=== PATIENT | female | born 1960 | race Caucasian/White ===

== ENCOUNTER 2017-02-24 15:42 | Inpatient (IN) ==
[2017-02-24] MEDS ORDERED: GLUCAGON 1 MG VIAL IM PRN (16:43)
[2017-02-24] MEDS ORDERED: ALBUTEROL/IPRATROPIUM 3 ML NEB RESP TX PRN (16:43)
[2017-02-24] MEDS ORDERED: DEXTROSE 50% 25 GM/50 ML VIAL IV PRN (16:43)
[2017-02-24] MEDS ORDERED: DOCUSATE SODIUM 100 MG CAPSULE PO PRN (16:43)
--- NOTE | 2017-02-24 16:43 | Pulmonology History & Physical ---
History of Present Illness Chief complaint: cough SOB outpttxfailure possible LLL pneumonia bronchiectasis IPF History of present illness: RAYMOND De La Cruz acting as scribe for Dr. Lazarus Torres. Ms. Oliver is a 56 year old /White female who was admitted today 02/24 from the clinic for increased cough, shortness of breath, fever, chills, fatigue, possible LLL pneumonia, history of bronchiectasis and IPF, that has been refractory to outpatient treatment. Before she presented to the clinic yesterday she was previously being treated with Levaquin and PenVK for 3 weeks for chronic bronchiectasis with recurrent infections, and she called 2-3 days before visit c/o increased symptoms. She had completed Levaquin and PenVK at that time so per Dr. Torres she was to start Cleocin and Keflex for 14 days. She reported no improvement in symptoms upon exam in the clinic, symptoms worse x 1 week with continued cough chest congestion minimal sputum production difficulty producing sputum with cough despite being on SSKI and Mucinex as directed. She was also experiencing nausea, abdominal pain, and fatigue which resulted in decreased appetite. Upon review of her CXR noted possible early left lower lobe infiltrate. Due to severity of her symptoms refractory to outpatient treatment, past medical history, and possible infiltrate on CXR decision was made to admit to inpatient for further evaluation and treatment. ALLERGIES: BACTRIM DS (NAUSEA/UPSET STOMACH). Home Medicines: See List. Past Medical History: Biopsy proven idiopathic pulmonary fibrosis, non-insulin dependent diabetes mellitus, degenerative joint disease, history of bronchospasm , three pulmonary nodules found in 2006 and [address] Huston who watched them for a while per CT scans of the chest, asthma, underlying bronchiectasis at the bases of the lungs, hyperlipidemia, gastroesophageal reflux disease. Past Surgical History: Open lung biopsy done in November [address] Callum Muñoz showed advanced interstitial lung disease with honeycomb lung pattern , tonsils/adenoids removed as a child, section. Social History: PCP Dr. Pratibha Connell. 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 CXR done 02/24/17 showed multiple chronic changes with a possible early left lower lobe infiltrate noted. [place]24/17 [place] [facility] [place] [place] been [place] WBC 10,300 with 70.4% segs H&H 13.2/ 41.4 with normal indices and increased RDW at 15.7% platelets 264,000. Home Medications Medication Instructions Recorded Confirmed Type Albuterol Sulfate [Albuterol Neb] 2.5 mg RESP TX Q3H PRN 03/25/16 02/24/17 History Ascorbic Acid [Vitamin C] 1,000 mg PO DAILY 03/25/16 02/24/17 History Cyanocobalamin (Vitamin B-12) 1,000 mcg SL DAILY 03/25/16 02/24/17 History [Vitamin B-12] Fluticasone/Vilanterol [Breo 1 puff INH DAILY 03/25/16 02/24/17 History Ellipta 100-25 Mcg INH] Furosemide Tab [Lasix Tab] 20 mg PO DAILY 03/25/16 02/24/17 History Gabapentin 300 mg PO BEDTIME 03/25/16 02/24/17 History Glimepiride [Amaryl] 4 mg PO BID 03/25/16 02/24/17 History Montelukast Tab [Singulair Tab] 10 mg PO DAILY 03/25/16 02/24/17 History Multivitamin [One Daily] 1 each PO DAILY 03/25/16 02/24/17 History Omeprazole [Prilosec] 20 mg PO BID 03/25/16 02/24/17 History PARoxetine [Paxil] 30 mg PO DAILY 03/25/16 02/24/17 History Pirfenidone [Esbriet] 801 mg PO TID 03/25/16 02/24/17 History metFORMIN [Glucophage] 850 mg PO TID 03/25/16 02/24/17 History Atorvastatin [Lipitor] 10 mg PO BEDTIME 02/24/17 02/24/17 History Benzonatate 200 mg PO TID PRN 02/24/17 02/24/17 History Biotin 10,000 mcg PO DAILY 02/24/17 02/24/17 History Levalbuterol HCl [Xopenex] 1.25 mg INH BID 02/24/17 02/24/17 History Levocetirizine Dihydrochloride 5 mg PO DAILY 02/24/17 02/24/17 History [Xyzal] Lysine HCl [l-Lysine] 500 mg PO DAILY 02/24/17 02/24/17 History Potassium Iodide Oral Soln [Sski] 1,000 mg PO BID 02/24/17 02/24/17 History predniSONE TAB [PredniSONE] 10 mg PO QOTHER DAY 02/24/17 02/24/17 History Allergies Allergy/AdvReac Type Severity Reaction Status Date / Time No Known Allergies Allergy Unverified 03/25/16 14:40 Medical,Surgical,& Family Hx - Medical History Endocrine: History of: Diabetes Mellitus (NIDDM) Respiratory: History of: Respiratory Problems (PULMONARY FIBROSIS) - Social History Smoking Status: Unknown if ever smoked Results - Labs CBC & BMP: 02/25/17 03:53 02/25/17 03:53 Exam (Pulmonay) H&P - Constitutional Vitals: Ht 64in Wt 209lbs BP 125/87 HR119 Temp 99.5 oral RR18 O2 sat 96% on 2L o2/NC Exam: GENERAL: Awake alert oriented. Acute and chronically ill appearing. Anxious NEURO: Cranial nerves are intact long tract motor function is intact. Sensory exam and gait not tested. HEENT: Pupils, irises, sclera, conjunctiva, and eyelids normal. Face is symmetrical with no rashes or masses. Nares are normal, nasal turbinates are slightly pale and swollen, lips tongue buccal mucosa ears and TMs normal. NECK: Symmetrical no masses or meningismus thyroid not palpated. Lymphatic: No submandibular cervical supraclavicular adenopathy Chest: Chest is symmetrical and nontender to palpation. There is a mild large airway wheeze on forced expiration. No high pitched expiratory peripheral wheezes noted. Mildly prolonged expiration. Inspiratory rales and squeaks noted in both bases consistent with bronchiectasis. Cardiovascular: Regular rate and rhythm, no murmurs or gallop. Abdomen: Nontender, no organomegaly, bowel sounds are present. Extremities: No clubbing, no edema, no evidence of deep venous thrombophlebitis Arterial: Arterial exam of the neck upper and lower extremities normal. Venous: Venous exam of the neck upper and lower extremities normal. Skin: No cancerous or infectious lesions noted on the exposed examined skin,, no other areas of skin were examined. Skin is cool and diaphoretic. The remainder of the physical exam is noncontributory. Impression: #1 Acute exacerbation of asthma, likely bacterial component due to increased WBC count with left shift refractory to outpatient treatment. #2 Possible acute left lower lobe infiltrate, sputums and blood cultures pending at this time. #3 Idiopathic pulmonary fibrosis #4 Non-insulin dependent diabetes mellitus #5 Bronchiectasis #6 See past history Plan #1 Admit to inpatient for further evaluation and treatment #2 Blood cultures x 3, sputum culture for gram stain C&S #3 IV antibiotics as ordered #4 Inhalation therapy with Duonebs and Acapella as ordered #5 Continue home medicines #6 See orders.
[2017-02-24] MEDS ORDERED: ACETAMINOPHEN 325 MG TABLET PO PRN (16:48)
[2017-02-24] MEDS ORDERED: BENZONATATE 100 MG CAPSULE PO PRN (16:53)
[2017-02-24] MEDS ORDERED: traMADol 50 MG TABLET PO PRN (16:56)
[2017-02-24 18:51] LABS: Alanine Aminotransferase 44 U/L (13-56); Albumin 3.9 G/DL (3.4-5.0); Alkaline Phosphatase 112 U/L (45-117); Aspartate Amino Transferase 21 U/L (0-37); Bilirubin,Total < 0.39 MG/DL (0.2-1.0); Blood Urea Nitrogen 9 MG/DL (7-18); Calcium 9.7 MG/DL (8.5-10.1); Glucose 173 MG/DL (74-106); Magnesium 2.1 MG/DL (1.8-2.4); Osmolality,Calculated 277.7 MOS/KG (273-304); Potassium 4.6 MMOL/L (3.5-5.1); Sodium 138 MMOL/L (136-145); Total Protein 8.6 G/DL (6.4-8.3)
[2017-02-24] MEDS: CLINDAMYCIN INJ 300 MG in PREMIX 1 EACH IV SCH ×2 (19:07→22:53)
[2017-02-24] MEDS: methylPREDNISolone SOD SUC 40 MG/1 ML VIAL IV SCH (19:07)
[2017-02-24] MEDS: ALBUTEROL/IPRATROPIUM 3 ML NEB RESP TX SCH (20:52)
[2017-02-24] MEDS: MONTELUKAST 10 MG TABLET PO SCH (20:54)
[2017-02-24] MEDS: POTASSIUM IODIDE ORAL SOLN 1,000 MG/ML BOTTLE PO SCH (20:54)
[2017-02-24] MEDS: MEROPENEM 1,000 MG in SODIUM CHLORIDE 0.9% 100 ML IV SCH (20:54)
[2017-02-24] MEDS ORDERED: ZALEPLON 5 MG CAPSULE PO PRN (21:00)
[2017-02-25] MEDS: MEROPENEM 1,000 MG in SODIUM CHLORIDE 0.9% 100 ML IV SCH ×3 (02:06→18:13)
[2017-02-25 04:43] LABS: Basophils % 0.3 % (0.0-0.8); Eosinophils % 0.4 % (0.00-10.9); Hematocrit 37.7 VOL% (35.7-47.0); Hemoglobin 12.2 GM/DL (12.0-16.0); Immature Granulocytes % 0.7 %; Immature Granulocytes Absolute 0.08 #; Lymphocytes # 1.8 10*3/uL (1.4-4.0); Mean Corpuscular HGB Conc 32.4 GM/DL (32-36); Mean Corpuscular Hemoglobin 28 PG (27-34); Mean Corpuscular Volume 86.3 FL (87-102); Mean Platelet Volume 10.7 FL (9.6-12.0); Monocytes # 0.9 10*3/uL (0.11-0.8); Monocytes % 7.9 % (1.7-12.7); Neutrophils # 7.9 10*3/uL (1.4-7.4); Neutrophils % 73.7 % (38.7-73.9); Platelet Count 279 T/CUMM (130-400); Red Blood Count 4.37 MC/CUMM (3.8-5.5); Red Cell Distribution Width 15.6 % (9.3-17.3); White Blood Count 10.7 T/CUMM (4-12)
[2017-02-25 05:08] LABS: Calcium 9.8 MG/DL (8.5-10.1); Osmolality,Calculated 278.5 MOS/KG (273-304); Potassium 4.6 MMOL/L (3.5-5.1)
[2017-02-25] MEDS: CLINDAMYCIN INJ 300 MG in PREMIX 1 EACH IV SCH ×4 (05:19→23:28)
[2017-02-25] MEDS: methylPREDNISolone SOD SUC 40 MG/1 ML VIAL IV SCH ×2 (05:19→17:41)
--- NOTE | 2017-02-25 07:16 | EKG Report ---
Stationary ECG Study [facility] Test Date: 02/25/2017 6:16:53 AM Pat Name: BRITNI WILSON Department: Room: 532 Gender: F Setter Off: VU : 1960 Requested by: Sam Romano Order Number: [id number] Reading MD: JOVON IBANEZ Intervals Mckenzie Rate: 70 P: 24 NE: 104 QRS: -18 QRSD: 98 T: -2 QT: 377 QTc: 397 Interpretive Statements SINUS RHYTHM WITH SHORT NE INTERVAL MINIMAL VOLTAGE CRITERIA FOR LVH, CONSIDER NORMAL VARIANT. Early repolarization.. No acuteChanges. Electronically Signed On 02-28-17 15:01:12 CDT by JOVON IBANEZ [email or web address]
[2017-02-25] MEDS: ALBUTEROL/IPRATROPIUM 3 ML NEB RESP TX SCH ×4 (07:29→19:41)
--- NOTE | 2017-02-25 07:36 | XRay Report ---
XR chest 2V Indication: Shortness of breath. Comparison: Chest x-ray 03/25/2016 Technique: PA and lateral chest x-ray was performed. Findings: Airspace opacification in the left lung base remains present with little change suggested given the difference in inspiration. Additional airspace opacities in the right costophrenic angle may have minimally increased. Heart size is within normal limits. Bones and soft tissues are stable. Impression: 1. Overall appearance of the lung parenchyma suggests little change. There may be minimal interval increase in airspace disease within the right costophrenic angle with otherwise little change in the left lung noted. 02/25/2017 7:32 AM PROCEDURE INTERPRETED AT [facility] DEPARTMENT OF RADIOLOGY Final Report Signed by: Dr. Jose Alfredo Whitman
[2017-02-25] MEDS ORDERED: BENZONATATE 100 MG CAPSULE PO PRN (10:07)
--- NOTE | 2017-02-25 10:16 | Pulmonology Progress Note ---
Pulmonary - PN: Subj Interval history: Kash Manzano, ANP-BC, GNP-BC, acting as scribe for Dr. Lazarus Torres Mrs. Oliver is a 56-year-old white female who was admitted [facility]/24/2017 from [facility]. At admission, our impressions were: #1 Acute exacerbation of asthma, likely bacterial component due to increased WBC count with left shift refractory to outpatient treatment. #2 Possible acute left lower lobe infiltrate, sputums and blood cultures pending at this time #3 Idiopathic pulmonary fibrosis #4 Non-insulin dependent diabetes mellitus #5 Bronchiectasis #6 See past history 02/25/2017. The patient's chest x-ray is already shown improvement since admission. She had a left lower lobe infiltrate and this persists, but is improving. Sputum for Gram stain, culture and sensitivity is pending. She is presently being treated with clindamycin and meropenem. She complains this morning that her home medications have not been restarted. On review of orders , and order was submitted yesterday to ID and continue her home meds. For some reason this was not done. Nonetheless, we have resumed her home medications this morning. She has a significant cough. We considered starting Klonopin 0.5 mg twice daily, but the patient would like to wait until her home medications were restarted to see if this will help. We suspect that it will. Medications have been reviewed. Her medications have been restarted. Labs have been reviewed. White count is 10,700 with 73.7% segs; H&H 12.2/37.7; platelet count 279,000; creatinine 0.70, BUN 10, electrolytes are normal Cold agglutinins are negative at 1:2 Legionella is pending. Exam (Progress Note) - Constitutional Vitals: Period Temp Pulse Resp BP Sys/Savage Pulse Ox Last 24 Hr 97.6 F-99.5 F 78-119 18-20 125-165/82-95 91-97 Exam: Chest: Patient's previously noted large airway wheezes improved. She continues to have significant large airway congestion. Inspiratory rales and squeaks and bilateral bases. Heart: No gallop Abdomen: Nontender and nondistended; bowel sounds are positive 4 Extremities: Nothing to suggest acute deep venous thrombophlebitis Psychiatric: Alert and oriented 3 Neurologic: Long tract motor function is intact Plan: Continue present treatment. Follow-up sputum Gram stain and culture when available. See orders. Results - Labs CBC & BMP: 02/25/17 03:53 02/25/17 03:53
[2017-02-25] MEDS: GLIMEPIRIDE 4 MG TABLET PO SCH ×2 (11:16→20:47)
[2017-02-25] MEDS: FUROSEMIDE 20 MG TABLET PO SCH (11:16)
[2017-02-25] MEDS: MONTELUKAST 10 MG TABLET PO SCH ×2 (11:16→20:47)
[2017-02-25] MEDS: MULTIVITAMIN (CENTRUM) TABLET PO SCH (11:16)
[2017-02-25] MEDS: PANTOPRAZOLE 40 MG TABLET PO SCH (11:16)
[2017-02-25] MEDS: ASCORBIC ACID 500 MG TABLET PO SCH (11:16)
[2017-02-25] MEDS: LYSINE 500 MG TABLET PO SCH (11:16)
[2017-02-25] MEDS: CETIRIZINE 10 MG TABLET PO SCH (11:17)
[2017-02-25] MEDS: POTASSIUM IODIDE ORAL SOLN 1,000 MG/ML BOTTLE PO SCH ×3 (11:17→20:48)
[2017-02-25] MEDS: BENZONATATE 100 MG CAPSULE PO SCH ×2 (14:59→20:47)
[2017-02-25] MEDS: CYANOCOBALAMIN 500 MCG TABLET PO SCH (14:59)
[2017-02-25] MEDS: metFORMIN 850 MG TABLET PO SCH ×2 (14:59→20:47)
[2017-02-25] MEDS: GABAPENTIN 300 MG CAPSULE PO SCH (20:56)
[2017-02-25] MEDS: ATORVASTATIN 10 MG TABLET PO SCH (20:56)
[2017-02-26] MEDS: MEROPENEM 1,000 MG in SODIUM CHLORIDE 0.9% 100 ML IV SCH ×4 (03:44→17:15)
[2017-02-26] MEDS: methylPREDNISolone SOD SUC 40 MG/1 ML VIAL IV SCH ×2 (04:29→17:07)
[2017-02-26] MEDS: CLINDAMYCIN INJ 300 MG in PREMIX 1 EACH IV SCH ×4 (04:30→23:36)
[2017-02-26 05:25] LABS: Basophils # 0.1 10*3/uL (0.0-0.2); Basophils % 0.5 % (0.0-0.8); Eosinophils # 0.3 10*3/uL (0.0-0.87); Eosinophils % 2.4 % (0.00-10.9); Hematocrit 37.8 VOL% (35.7-47.0); Hemoglobin 12.5 GM/DL (12.0-16.0); Immature Granulocytes % 0.8 %; Lymphocytes # 3.3 10*3/uL (1.4-4.0); Mean Corpuscular HGB Conc 33.1 GM/DL (32-36); Mean Corpuscular Hemoglobin 29 PG (27-34); Mean Corpuscular Volume 87.1 FL (87-102); Mean Platelet Volume 10.7 FL (9.6-12.0); Monocytes # 1.2 10*3/uL (0.11-0.8); Monocytes % 10.2 % (1.7-12.7); Neutrophils # 7.2 10*3/uL (1.4-7.4); Neutrophils % 59.1 % (38.7-73.9); Platelet Count 253 T/CUMM (130-400); Red Blood Count 4.34 MC/CUMM (3.8-5.5); Red Cell Distribution Width 15.7 % (9.3-17.3); White Blood Count 12.1 T/CUMM (4-12)
[2017-02-26 06:01] LABS: Calcium 9.2 MG/DL (8.5-10.1); Osmolality,Calculated 281.1 MOS/KG (273-304); Potassium 4.3 MMOL/L (3.5-5.1)
[2017-02-26] MEDS: ALBUTEROL/IPRATROPIUM 3 ML NEB RESP TX SCH ×4 (07:31→19:38)
[2017-02-26] MEDS: BENZONATATE 100 MG CAPSULE PO SCH ×3 (08:09→21:41)
[2017-02-26] MEDS: CYANOCOBALAMIN 500 MCG TABLET PO SCH (08:09)
[2017-02-26] MEDS: MULTIVITAMIN (CENTRUM) TABLET PO SCH (08:10)
[2017-02-26] MEDS: LYSINE 500 MG TABLET PO SCH (08:10)
[2017-02-26] MEDS: PANTOPRAZOLE 40 MG TABLET PO SCH (08:10)
[2017-02-26] MEDS: MONTELUKAST 10 MG TABLET PO SCH ×2 (08:10→21:42)
[2017-02-26] MEDS: GLIMEPIRIDE 4 MG TABLET PO SCH ×2 (08:11→21:42)
[2017-02-26] MEDS: CETIRIZINE 10 MG TABLET PO SCH (08:11)
[2017-02-26] MEDS: FUROSEMIDE 20 MG TABLET PO SCH (08:11)
[2017-02-26] MEDS: ASCORBIC ACID 500 MG TABLET PO SCH ×2 (08:11→21:41)
[2017-02-26] MEDS: metFORMIN 850 MG TABLET PO SCH ×3 (08:11→21:42)
[2017-02-26] MEDS: POTASSIUM IODIDE ORAL SOLN 1,000 MG/ML BOTTLE PO SCH ×3 (08:14→21:45)
[2017-02-26] MEDS ORDERED: PARoxetine 10 MG TABLET PO SCH (09:00)
--- NOTE | 2017-02-26 10:12 | Pulmonology Progress Note ---
Pulmonary - PN: Subj Interval history: Mrs. Oliver is a 56-year-old white female who was admitted 02/24/2017 from [facility]. At admission, our impressions were: #1 Acute exacerbation of asthma, likely bacterial component due to increased WBC count with left shift refractory to outpatient treatment. #2 Possible acute left lower lobe infiltrate, sputums and blood cultures pending at this time #3 Idiopathic pulmonary fibrosis #4 Non-insulin dependent diabetes mellitus #5 Bronchiectasis #6 See past history 02/25/2017. The patient's chest x-ray is already shown improvement since admission. She had a left lower lobe infiltrate and this persists, but is improving. Sputum for Gram stain, culture and sensitivity is pending. She is presently being treated with clindamycin and meropenem. She complains this morning that her home medications have not been restarted. On review of orders , and order was submitted yesterday to ID and continue her home meds. For some reason this was not done. Nonetheless, we have resumed her home medications this morning. She has a significant cough. We considered starting Klonopin 0.5 mg twice daily, but the patient would like to wait until her home medications were restarted to see if this will help. We suspect that it will. Medications have been reviewed. Her medications have been restarted. Labs have been reviewed. White count is 10,700 with 73.7% segs; H&H 12.2/37.7; platelet count 279,000; creatinine 0.70, BUN 10, electrolytes are normal Cold agglutinins are negative at 1:2 Legionella is pending. 02/26/2017. This patient's breathing much better she has begun to mobilize some sputum and she says that has helped a lot she is on multiple expectorants. Today I have added ventilation therapy with Pulmozyme twice a day and hopefully this will help. She has idiopathic pulmonary fibrosis and I feel certain she has areas of bronchiectasis at both bases. There are no new cultures. We had some problems getting the patient's medicines restarted properly and now several of them need to be changed from the morning to nighttime. See orders. Chest is much clearer. We will continue to treat this patient through the weekend and her perhaps early next week she will be ready for discharge. She was in outpatient treatment failure. Exam (Progress Note) - Constitutional Vitals: Period Temp Pulse Resp BP Sys/Savage Pulse Ox Last 24 Hr 97.6 F-99.5 F 78-119 18-20 125-165/82-95 91-97 Exam: General. Appears stronger and less ill. Face. Symmetrical. Lips and tongue are normal. Neck. Symmetrical. No meningismus. Lymphatics. No submandibular cervical supraclavicular or epitrochlear Chest: Patient's previously noted large airway wheezes improved. She continues to have significant large airway congestion. Inspiratory rales and squeaks and bilateral bases. Heart: No gallop Abdomen: Nontender and nondistended; bowel sounds are positive 4 Extremities: Nothing to suggest acute deep venous thrombophlebitis Psychiatric: Alert and oriented 3 Neurologic: Long tract motor function is intact Plan: 1. 02/25/2017. Continue present treatment. Follow-up sputum Gram stain and culture when available. See orders. 2. 02/26/2017. See today's note above. Ventilation treatment Pulmozyme. Exam (Progress Note) - Constitutional Vitals: Period Temp Pulse Resp BP Sys/Savage Pulse Ox Last 24 Hr 97.0 F-99.3 F 72-110 16-21 103-131/61-72 92-100 Results - Labs CBC & BMP: 02/26/17 04:53 02/26/17 04:54
[2017-02-26] MEDS: NON-FORMULARY MEDICATION (Biotin [Biotin] 10,000 MCG) PO SCH (10:50)
[2017-02-26] MEDS: DORNASE ALFA 2.5 MG/2.5 ML VIAL RESP TX SCH ×2 (11:45→19:38)
[2017-02-26] MEDS: BREO ELLIPTA INH SCH (14:48)
[2017-02-26] MEDS: ESBRIET PO SCH ×2 (14:48→21:45)
[2017-02-26] MEDS: CETIRIZINE 5 MG TABLET PO SCH (21:41)
[2017-02-26] MEDS: ATORVASTATIN 10 MG TABLET PO SCH (21:42)
[2017-02-26] MEDS: GABAPENTIN 300 MG CAPSULE PO SCH (21:42)
[2017-02-26] MEDS: PARoxetine 10 MG TABLET PO SCH (21:45)
[2017-02-27] MEDS: MEROPENEM 1,000 MG in SODIUM CHLORIDE 0.9% 100 ML IV SCH ×4 (02:28→18:05)
[2017-02-27] MEDS: methylPREDNISolone SOD SUC 40 MG/1 ML VIAL IV SCH ×2 (06:06→17:03)
[2017-02-27] MEDS: CLINDAMYCIN INJ 300 MG in PREMIX 1 EACH IV SCH ×4 (06:06→17:02)
[2017-02-27 06:29] LABS: Basophils % 0.2 % (0.0-0.8); Eosinophils # 0.3 10*3/uL (0.0-0.87); Hematocrit 35.9 VOL% (35.7-47.0); Hemoglobin 11.7 GM/DL (12.0-16.0); Immature Granulocytes % 0.8 %; Immature Granulocytes Absolute 0.11 #; Lymphocytes # 3.6 10*3/uL (1.4-4.0); Lymphocytes % 26.9 % (21.3-54.2); Mean Corpuscular HGB Conc 32.6 GM/DL (32-36); Mean Corpuscular Hemoglobin 28 PG (27-34); Mean Corpuscular Volume 86.9 FL (87-102); Mean Platelet Volume 10.7 FL (9.6-12.0); Monocytes # 1.2 10*3/uL (0.11-0.8); Neutrophils # 8.1 10*3/uL (1.4-7.4); Neutrophils % 61.1 % (38.7-73.9); Platelet Count 252 T/CUMM (130-400); Red Blood Count 4.13 MC/CUMM (3.8-5.5); Red Cell Distribution Width 15.8 % (9.3-17.3); White Blood Count 13.3 T/CUMM (4-12)
[2017-02-27 07:12] LABS: Calcium 9.1 MG/DL (8.5-10.1); Magnesium 2.1 MG/DL (1.8-2.4); Osmolality,Calculated 279.3 MOS/KG (273-304); Potassium 4.2 MMOL/L (3.5-5.1)
[2017-02-27] MEDS: LYSINE 500 MG TABLET PO SCH (08:19)
[2017-02-27] MEDS: MONTELUKAST 10 MG TABLET PO SCH ×2 (08:19→20:35)
[2017-02-27] MEDS: BENZONATATE 100 MG CAPSULE PO SCH ×3 (08:19→20:34)
[2017-02-27] MEDS: PANTOPRAZOLE 40 MG TABLET PO SCH (08:19)
[2017-02-27] MEDS: FUROSEMIDE 20 MG TABLET PO SCH (08:19)
[2017-02-27] MEDS: metFORMIN 850 MG TABLET PO SCH ×3 (08:19→20:35)
[2017-02-27] MEDS: GLIMEPIRIDE 4 MG TABLET PO SCH ×2 (08:19→20:36)
[2017-02-27] MEDS: BREO ELLIPTA INH SCH (08:20)
[2017-02-27] MEDS: POTASSIUM IODIDE ORAL SOLN 1,000 MG/ML BOTTLE PO SCH ×3 (08:20→20:36)
[2017-02-27] MEDS: ESBRIET PO SCH ×3 (08:20→20:36)
[2017-02-27] MEDS: ALBUTEROL/IPRATROPIUM 3 ML NEB RESP TX SCH ×3 (08:55→21:45)
[2017-02-27] MEDS: DORNASE ALFA 2.5 MG/2.5 ML VIAL RESP TX SCH ×2 (08:55→21:57)
--- NOTE | 2017-02-27 11:21 | Pulmonology Progress Note ---
Pulmonary - PN: Subj Interval history: Mrs. Oliver is a 56-year-old white female who was admitted 02/24/2017 from [facility]. At admission, our impressions were: #1 Acute exacerbation of asthma, likely bacterial component due to increased WBC count with left shift refractory to outpatient treatment. #2 Possible acute left lower lobe infiltrate, sputums and blood cultures pending at this time #3 Idiopathic pulmonary fibrosis #4 Non-insulin dependent diabetes mellitus #5 Bronchiectasis #6 See past history 02/25/2017. The patient's chest x-ray is already shown improvement since admission. She had a left lower lobe infiltrate and this persists, but is improving. Sputum for Gram stain, culture and sensitivity is pending. She is presently being treated with clindamycin and meropenem. She complains this morning that her home medications have not been restarted. On review of orders , and order was submitted yesterday to ID and continue her home meds. For some reason this was not done. Nonetheless, we have resumed her home medications this morning. She has a significant cough. We considered starting Klonopin 0.5 mg twice daily, but the patient would like to wait until her home medications were restarted to see if this will help. We suspect that it will. Medications have been reviewed. Her medications have been restarted. Labs have been reviewed. White count is 10,700 with 73.7% segs; H&H 12.2/37.7; platelet count 279,000; creatinine 0.70, BUN 10, electrolytes are normal Cold agglutinins are negative at 1:2 Legionella is pending. 02/26/2017. This patient's breathing much better she has begun to mobilize some sputum and she says that has helped a lot she is on multiple expectorants. Today I have added ventilation therapy with Pulmozyme twice a day and hopefully this will help. She has idiopathic pulmonary fibrosis and I feel certain she has areas of bronchiectasis at both bases. There are no new cultures. We had some problems getting the patient's medicines restarted properly and now several of them need to be changed from the morning to nighttime. See orders. Chest is much clearer. We will continue to treat this patient through the weekend and her perhaps early next week she will be ready for discharge. She was in outpatient treatment failure. 02/27/2017. Today's x-ray shows improvement. Left lower lung infiltrate is still present but is decreased in size. Patient has bilateral idiopathic pulmonary fibrosis which is most prominent at the bases. There are no positive cultures. Electrolytes are normal. Creatinine is 0.6 with a BUN of 14. White count was 13,300. Patient has some muscle cramps in the latissimus dorsi and her intercostal muscles on the left and I showed her how to stretch for these. She is mobilizing sputum and notes she thinks she is breathing better and I agree. Labs been reviewed. Medicines have been reviewed Exam (Progress Note) - Constitutional Vitals: Period Temp Pulse Resp BP Sys/Savage Pulse Ox Last 24 Hr 97.6 F-99.5 F 78-119 18-20 125-165/82-95 91-97 Exam: General. Appears stronger and less ill. Face. Symmetrical. Lips and tongue are normal. Neck. Symmetrical. No meningismus. Lymphatics. No submandibular cervical supraclavicular or epitrochlear Chest: Patient's previously noted large airway wheezes improved. She continues to have significant large airway congestion. Inspiratory rales and squeaks and bilateral bases. Heart: No gallop Abdomen: Nontender and nondistended; bowel sounds are positive 4 Extremities: Nothing to suggest acute deep venous thrombophlebitis Psychiatric: Alert and oriented 3 Neurologic: Long tract motor function is intact Plan: 1. 02/25/2017. Continue present treatment. Follow-up sputum Gram stain and culture when available. See orders. 2. 02/26/2017. See today's note above. Ventilation treatment Pulmozyme. Exam (Progress Note) - Constitutional Vitals: Period Temp Pulse Resp BP Sys/Savage Pulse Ox Last 24 Hr 97.0 F-98.3 F 75-117 18-20 108-127/61-73 94-100 Results - Labs CBC & BMP: 02/27/17 05:26 02/27/17 05:26
--- NOTE | 2017-02-27 11:22 | XRay Report ---
Exam: XR chest 2V Indication: Pulmonary fibrosis, pneumonia, bronchiectasis Comparison study: Prior chest radiograph 02/25/2017 Findings: Diffuse interstitial prominence and reticular opacities are most compatible with given history of IPF. There are also patchy basilar opacities on the left which are similar primary present developing pneumonia or atelectasis versus superimposed scarring changes. There is no pneumothorax. No definite pleural effusion is identified. Cardiac silhouette and mediastinal contours appear within normal limits. Impression: Findings most suggestive of the given history of interstitial fibrosis with possible left basilar opacities and developing infectious/inflammatory filtration cannot be excluded. PROCEDURE INTERPRETED AT [facility] DEPARTMENT OF RADIOLOGY Final Report Signed by: Callum Perdomo
[2017-02-27] MEDS: MULTIVITAMIN (CENTRUM) TABLET PO SCH (14:15)
[2017-02-27] MEDS: CYANOCOBALAMIN 500 MCG TABLET PO SCH (14:16)
[2017-02-27] MEDS: ASCORBIC ACID 500 MG TABLET PO SCH (20:35)
[2017-02-27] MEDS: GABAPENTIN 300 MG CAPSULE PO SCH (20:35)
[2017-02-27] MEDS: ATORVASTATIN 10 MG TABLET PO SCH (20:35)
[2017-02-27] MEDS: PARoxetine 10 MG TABLET PO SCH (20:35)
[2017-02-27] MEDS: CETIRIZINE 5 MG TABLET PO SCH (20:35)
[2017-02-27] MEDS ORDERED: CETIRIZINE 5 MG TABLET PO PRN (21:00)
[2017-02-28] MEDS: CLINDAMYCIN INJ 300 MG in PREMIX 1 EACH IV SCH ×4 (00:21→16:43)
[2017-02-28] MEDS: MEROPENEM 1,000 MG in SODIUM CHLORIDE 0.9% 100 ML IV SCH ×3 (02:28→17:32)
[2017-02-28] MEDS: methylPREDNISolone SOD SUC 40 MG/1 ML VIAL IV SCH ×2 (06:04→16:43)
[2017-02-28] MEDS: ALBUTEROL/IPRATROPIUM 3 ML NEB RESP TX SCH ×5 (08:04→20:12)
[2017-02-28] MEDS: MONTELUKAST 10 MG TABLET PO SCH ×2 (08:05→20:53)
[2017-02-28] MEDS: BENZONATATE 100 MG CAPSULE PO SCH ×3 (08:05→20:52)
[2017-02-28] MEDS: FUROSEMIDE 20 MG TABLET PO SCH (08:05)
[2017-02-28] MEDS: metFORMIN 850 MG TABLET PO SCH ×3 (08:05→20:54)
[2017-02-28] MEDS: POTASSIUM IODIDE ORAL SOLN 1,000 MG/ML BOTTLE PO SCH ×3 (08:06→20:54)
[2017-02-28] MEDS: LYSINE 500 MG TABLET PO SCH (08:06)
[2017-02-28] MEDS: GLIMEPIRIDE 4 MG TABLET PO SCH ×2 (08:06→20:53)
[2017-02-28] MEDS: BREO ELLIPTA INH SCH (08:06)
[2017-02-28] MEDS: MULTIVITAMIN (CENTRUM) TABLET PO SCH (08:06)
[2017-02-28] MEDS: ESBRIET PO SCH ×3 (08:06→20:55)
[2017-02-28] MEDS: CYANOCOBALAMIN 500 MCG TABLET PO SCH (08:06)
[2017-02-28] MEDS: PANTOPRAZOLE 40 MG TABLET PO SCH (08:06)
[2017-02-28] MEDS: DORNASE ALFA 2.5 MG/2.5 ML VIAL RESP TX SCH ×2 (08:13→20:12)
--- NOTE | 2017-02-28 11:30 | Pulmonology Progress Note ---
Pulmonary - PN: Subj Interval history: Mrs. Oliver is a 56-year-old white female who was admitted 02/24/2017 from [facility]. At admission, our impressions were: #1 Acute exacerbation of asthma, likely bacterial component due to increased WBC count with left shift refractory to outpatient treatment. #2 Possible acute left lower lobe infiltrate, sputums and blood cultures pending at this time #3 Idiopathic pulmonary fibrosis #4 Non-insulin dependent diabetes mellitus #5 Bronchiectasis #6 See past history 02/25/2017. The patient's chest x-ray is already shown improvement since admission. She had a left lower lobe infiltrate and this persists, but is improving. Sputum for Gram stain, culture and sensitivity is pending. She is presently being treated with clindamycin and meropenem. She complains this morning that her home medications have not been restarted. On review of orders , and order was submitted yesterday to ID and continue her home meds. For some reason this was not done. Nonetheless, we have resumed her home medications this morning. She has a significant cough. We considered starting Klonopin 0.5 mg twice daily, but the patient would like to wait until her home medications were restarted to see if this will help. We suspect that it will. Medications have been reviewed. Her medications have been restarted. Labs have been reviewed. White count is 10,700 with 73.7% segs; H&H 12.2/37.7; platelet count 279,000; creatinine 0.70, BUN 10, electrolytes are normal Cold agglutinins are negative at 1:2 Legionella is pending. 02/26/2017. This patient's breathing much better she has begun to mobilize some sputum and she says that has helped a lot she is on multiple expectorants. Today I have added ventilation therapy with Pulmozyme twice a day and hopefully this will help. She has idiopathic pulmonary fibrosis and I feel certain she has areas of bronchiectasis at both bases. There are no new cultures. We had some problems getting the patient's medicines restarted properly and now several of them need to be changed from the morning to nighttime. See orders. Chest is much clearer. We will continue to treat this patient through the weekend and her perhaps early next week she will be ready for discharge. She was in outpatient treatment failure. 02/27/2017. Today's x-ray shows improvement. Left lower lung infiltrate is still present but is decreased in size. Patient has bilateral idiopathic pulmonary fibrosis which is most prominent at the bases. There are no positive cultures. Electrolytes are normal. Creatinine is 0.6 with a BUN of 14. White count was 13,300. Patient has some muscle cramps in the latissimus dorsi and her intercostal muscles on the left and I showed her how to stretch for these. She is mobilizing sputum and notes she thinks she is breathing better and I agree. 02/28/2017. Patient continues to slowly improve. She does say that her tracheal area feels raw when she takes a deep breath. She was able to get out of the room and walks some yesterday but not nearly as much as I hope. In the morning she is getting up some sputum but later in the day her cough does not produce any. Will check a follow-up chest x-ray on her tomorrow morning. Since she has idiopathic pulmonary fibrosis there is a chance we may consider bronchoscopy for additional cultures and for help with removal of retained secretions. Labs been reviewed. Medicines have been reviewed Exam (Progress Note) - Constitutional Vitals: Period Temp Pulse Resp BP Sys/Savage Pulse Ox Last 24 Hr 97.6 F-99.5 F 78-119 18-20 125-165/82-95 91-97 Exam: General. Appears stronger and less ill. Face. Symmetrical. Lips and tongue are normal. Neck. Symmetrical. No meningismus. Lymphatics. No submandibular cervical supraclavicular or epitrochlear Chest: Patient's previously noted large airway wheezes improved. She continues to have significant large airway congestion. Inspiratory rales and squeaks and bilateral bases. Heart: No gallop Abdomen: Nontender and nondistended; bowel sounds are positive 4 Extremities: Nothing to suggest acute deep venous thrombophlebitis Psychiatric: Alert and oriented 3 Neurologic: Long tract motor function is intact Plan: 1. 02/25/2017. Continue present treatment. Follow-up sputum Gram stain and culture when available. See orders. 2. 02/26/2017. See today's note above. Ventilation treatment Pulmozyme. 3. 02/28/2017. See note above. Follow-up chest x-ray. Some problems mobile but lies in supine Exam (Progress Note) - Constitutional Vitals: Period Temp Pulse Resp BP Sys/Savage Pulse Ox Last 24 Hr 97.7 F-98.4 F 79-122 16-22 97-134/58-73 95-98 Results - Labs CBC & BMP: 02/27/17 05:26 02/27/17 05:26
[2017-02-28] MEDS: CETIRIZINE 5 MG TABLET PO SCH (20:53)
[2017-02-28] MEDS: ASCORBIC ACID 500 MG TABLET PO SCH (20:53)
[2017-02-28] MEDS: GABAPENTIN 300 MG CAPSULE PO SCH (20:53)
[2017-02-28] MEDS: PARoxetine 10 MG TABLET PO SCH (20:54)
[2017-02-28] MEDS: ATORVASTATIN 10 MG TABLET PO SCH (20:54)
[2017-03-01] MEDS: CLINDAMYCIN INJ 300 MG in PREMIX 1 EACH IV SCH ×5 (00:28→22:50)
[2017-03-01] MEDS: MEROPENEM 1,000 MG in SODIUM CHLORIDE 0.9% 100 ML IV SCH ×3 (02:52→17:19)
[2017-03-01 05:10] LABS: Basophils # 0.1 10*3/uL (0.0-0.2); Basophils % 0.4 % (0.0-0.8); Eosinophils # 0.3 10*3/uL (0.0-0.87); Hematocrit 34.5 VOL% (35.7-47.0); Hemoglobin 11.3 GM/DL (12.0-16.0); Immature Granulocytes % 1.5 %; Immature Granulocytes Absolute 0.19 #; Lymphocytes # 3.4 10*3/uL (1.4-4.0); Lymphocytes % 26.3 % (21.3-54.2); Mean Corpuscular HGB Conc 32.8 GM/DL (32-36); Mean Corpuscular Hemoglobin 28 PG (27-34); Mean Platelet Volume 10.8 FL (9.6-12.0); Monocytes # 1.2 10*3/uL (0.11-0.8); Monocytes % 9.1 % (1.7-12.7); Neutrophils # 7.7 10*3/uL (1.4-7.4); Neutrophils % 60.7 % (38.7-73.9); Platelet Count 250 T/CUMM (130-400); Red Blood Count 4.01 MC/CUMM (3.8-5.5); Red Cell Distribution Width 15.8 % (9.3-17.3); White Blood Count 12.7 T/CUMM (4-12)
[2017-03-01 05:50] LABS: Osmolality,Calculated 273.5 MOS/KG (273-304); Potassium 3.9 MMOL/L (3.5-5.1)
[2017-03-01] MEDS: methylPREDNISolone SOD SUC 40 MG/1 ML VIAL IV SCH ×2 (06:07→17:16)
[2017-03-01] MEDS: ALBUTEROL/IPRATROPIUM 3 ML NEB RESP TX SCH ×4 (07:18→19:10)
[2017-03-01] MEDS: DORNASE ALFA 2.5 MG/2.5 ML VIAL RESP TX SCH ×2 (07:20→19:10)
--- NOTE | 2017-03-01 09:01 | XRay Report ---
XR chest 2V Indication: Pneumonia, IPF, bronchiectasis Comparison: Chest x-ray dated February 27, 2017 Technique: Frontal and lateral views of the chest. Findings: The cardiomediastinal silhouette is stable in configuration. Continued coarse bilateral interstitial prominence, greatest within the lower lungs and greater on the left most suspicious for interstitial lung disease. It would be difficult to exclude underlying infection or interstitial pulmonary edema, specifically within the left lung base. Visualized osseous and surrounding soft tissue structures appear grossly unchanged. IMPRESSION: No significant interval change. PROCEDURE INTERPRETED AT [facility] DEPARTMENT OF RADIOLOGY Final Report Signed by: Dr Sky Lund
[2017-03-01] MEDS: BENZONATATE 100 MG CAPSULE PO SCH ×3 (09:07→20:32)
[2017-03-01] MEDS: GLIMEPIRIDE 4 MG TABLET PO SCH (09:07)
[2017-03-01] MEDS: LYSINE 500 MG TABLET PO SCH (09:07)
[2017-03-01] MEDS: PANTOPRAZOLE 40 MG TABLET PO SCH (09:07)
[2017-03-01] MEDS: MONTELUKAST 10 MG TABLET PO SCH ×2 (09:09→20:33)
[2017-03-01] MEDS: metFORMIN 850 MG TABLET PO SCH ×2 (09:09→17:16)
[2017-03-01] MEDS: FUROSEMIDE 20 MG TABLET PO SCH (09:09)
[2017-03-01] MEDS: CYANOCOBALAMIN 500 MCG TABLET PO SCH (09:09)
[2017-03-01] MEDS: MULTIVITAMIN (CENTRUM) TABLET PO SCH (09:09)
[2017-03-01] MEDS: ESBRIET PO SCH ×3 (09:10→20:33)
[2017-03-01] MEDS: POTASSIUM IODIDE ORAL SOLN 1,000 MG/ML BOTTLE PO SCH ×3 (09:10→20:33)
[2017-03-01] MEDS: BREO ELLIPTA INH SCH (09:11)
--- NOTE | 2017-03-01 10:46 | Pulmonology Progress Note ---
Pulmonary - PN: Subj Interval history: Kash Manzano, ANP-BC, GNP-BC, acting as scribe for Dr. Lazarus Torres Mrs. Oliver is a 56-year-old white female who was [facility]. At admission, our impressions were: #1 Acute exacerbation of asthma, likely bacterial component due to increased WBC count with left shift refractory to outpatient treatment. #2 Possible acute left lower lobe infiltrate, sputums and blood cultures pending at this time #3 Idiopathic pulmonary fibrosis #4 Non-insulin dependent diabetes mellitus #5 Bronchiectasis #6 See past history 02/25/2017. The patient's chest x-ray is already shown improvement since admission. She had a left lower lobe infiltrate and this persists, but is improving. Sputum for Gram stain, culture and sensitivity is pending. She is presently being treated with clindamycin and meropenem. She complains this morning that her home medications have not been restarted. On review of orders , and order was submitted yesterday to ID and continue her home meds. For some reason this was not done. Nonetheless, we have resumed her home medications this morning. She has a significant cough. We considered starting Klonopin 0.5 mg twice daily, but the patient would like to wait until her home medications were restarted to see if this will help. We suspect that it will. Medications have been reviewed. Her home medications have been restarted. Labs have been reviewed. White count is 10,700 with 73.7% segs; H&H 12.2/37.7; platelet count 279,000; creatinine 0.70, BUN 10, electrolytes are normal Cold agglutinins are negative at 1:2 Legionella is pending. 02/26/2017. This patient's breathing much better she has begun to mobilize some sputum and she says that has helped a lot she is on multiple expectorants. Today I have added ventilation therapy with Pulmozyme twice a day and hopefully this will help. She has idiopathic pulmonary fibrosis and I feel certain she has areas of bronchiectasis at both bases. There are no new cultures. We had some problems getting the patient's medicines restarted properly and now several of them need to be changed from the morning to nighttime. See orders. Chest is much clearer. We will continue to treat this patient through the weekend and her perhaps early next week she will be ready for discharge. She was in outpatient treatment failure. 02/27/2017. Today's x-ray shows improvement. Left lower lung infiltrate is still present but is decreased in size. Patient has bilateral idiopathic pulmonary fibrosis which is most prominent at the bases. There are no positive cultures. Electrolytes are normal. Creatinine is 0.6 with a BUN of 14. White count was 13,300. Patient has some muscle cramps in the latissimus dorsi and her intercostal muscles on the left and I showed her how to stretch for these. She is mobilizing sputum and notes she thinks she is breathing better and I agree. 02/28/2017. Patient continues to slowly improve. She does say that her tracheal area feels raw when she takes a deep breath. She was able to get out of the room and walks some yesterday but not nearly as much as I hope. In the morning she is getting up some sputum but later in the day her cough does not produce any. Will check a follow-up chest x-ray on her tomorrow morning. Since she has idiopathic pulmonary fibrosis there is a chance we may consider bronchoscopy for additional cultures and for help with removal of retained secretions. 03/01/2017. Patient sitting up in a chair at bedside. She states that overall her breathing has improved. She continues to have a productive cough and difficulty mobilizing her secretions. We have offered fiberoptic bronchoscopy, but the patient feels that she is improving wants to hold off at this time. This is reasonable. We can consider bronchoscopy at a later date or even as an outpatient if needed. Glucose this morning fasting was 35. Notably she is on metformin 850 mg twice daily with meals and Amaryl 2 mg daily with breakfast. We will obtain a hemoglobin A1c to better clarify her diabetes mellitus. Sputum cultures only growing yeast. This was not a Fozia pneumonia. She will be treated with Diflucan 200 mg p.o. daily for 7 days. Medications have been reviewed. Labs been reviewed. White count is 12,700 with 60.7% segs; H&H 11.3/34.5; platelet count 250,000; creatinine 0.50, BUN 15, electrolytes are normal Exam (Progress Note) - Constitutional Vitals: Period Temp Pulse Resp BP Sys/Savage Pulse Ox Last 24 Hr 97.3 F-98.4 F 75-110 16-20 110-139/70-76 92-99 Exam: On chest exam, the patient's previously noted large airway wheezes have improved. She continues to have some large airway congestion. Inspiratory rales and squeaks in the bilateral bases have improved. Heart: No gallop Abdomen: Nontender and nondistended; bowel sounds are positive 4 Extremities: Nothing to suggest acute deep venous thrombophlebitis Psychiatric: Alert and oriented 3 Neurologic: Long tract motor function is intact Plan: Continue present treatment. Start Diflucan as above. Consider FOB at a later date if patient is agreeable. If she does well today and tomorrow, she will most likely be ready for discharge at that time. Results - Labs CBC & BMP: 03/01/17 04:12 03/01/17 04:12
[2017-03-01] MEDS: FLUCONAZOLE 200 MG TABLET PO SCH (12:25)
[2017-03-01] MEDS: CETIRIZINE 5 MG TABLET PO SCH (20:32)
[2017-03-01] MEDS: PARoxetine 10 MG TABLET PO SCH (20:32)
[2017-03-01] MEDS: ASCORBIC ACID 500 MG TABLET PO SCH (20:32)
[2017-03-01] MEDS: ATORVASTATIN 10 MG TABLET PO SCH (20:33)
[2017-03-01] MEDS: GABAPENTIN 300 MG CAPSULE PO SCH (20:33)
[2017-03-02] MEDS: MEROPENEM 1,000 MG in SODIUM CHLORIDE 0.9% 100 ML IV SCH ×3 (01:41→17:16)
[2017-03-02] MEDS: methylPREDNISolone SOD SUC 40 MG/1 ML VIAL IV SCH ×2 (05:05→16:19)
[2017-03-02] MEDS: CLINDAMYCIN INJ 300 MG in PREMIX 1 EACH IV SCH ×4 (05:06→22:51)
[2017-03-02] MEDS: DORNASE ALFA 2.5 MG/2.5 ML VIAL RESP TX SCH ×2 (07:25→19:21)
[2017-03-02] MEDS: ALBUTEROL/IPRATROPIUM 3 ML NEB RESP TX SCH ×4 (07:34→19:21)
[2017-03-02] MEDS ORDERED: MEPERIDINE 50 MG/1 ML VIAL IM ONE (08:51)
[2017-03-02] MEDS ORDERED: diphenhydrAMINE 50 MG/1 ML VIAL ONE (08:52)
[2017-03-02] MEDS ORDERED: diphenhydrAMINE 50 MG/1 ML VIAL IM STA (08:52)
[2017-03-02] MEDS ORDERED: BENZONATATE 100 MG CAPSULE PO STA (08:53)
[2017-03-02] MEDS ORDERED: LIDOCAINE 1% 20 ML VIAL MISC INJ ONE (09:19)
[2017-03-02] MEDS: BENZONATATE 100 MG CAPSULE PO SCH ×3 (09:19→20:36)
[2017-03-02] MEDS ORDERED: MIDAZOLAM 2 MG/2 ML VIAL ONE (09:23)
[2017-03-02] MEDS ORDERED: LIDOCAINE 2% VISCOUS 100 ML BOTTLE SWISH/SPIT ONE (09:24)
[2017-03-02] MEDS ORDERED: LIDOCAINE 4% TOP SOLN 50 ML BOTTLE RESP TX ONE (09:25)
[2017-03-02] MEDS ORDERED: MIDAZOLAM 2 MG/2 ML VIAL IV ONE (09:32)
--- NOTE | 2017-03-02 10:45 | Event Note ---
In hospital diagnostic and therapeutic fiberoptic bronchoscopy. Bilateral lavages were sent for cytology, Gram stain, bacterial cultures, AFB stains and culture, fungal stains and cultures. This is a 56-year-old white female who has idiopathic pulmonary fibrosis. She was admitted with a left lower lung pneumonia. She has an intractable cough that has not responded to aggressive and appropriate treatment. She is thought to have retained secretions which she cannot mobilize. We have not we do not have any positive cultures. For all these reasons she is evaluated with fiberoptic bronchoscopy. Vocal cords were normal. See photograph #1. Trachea was normal. Naa was sharp. See photograph #2 Right mainstem bronchus contained a good bit of thick tenacious secretions that extended into the right upper lung and the right middle lung and in the right lower lung. Right lower lung was lavaged and suctioned until clear. There was underlying erosive friable bronchitis in the subsegments of the right lower lung. See photograph #3. There were no endobronchial lesions to suggest cancer. The left mainstem bronchus contained secretions that extended into the lingula which was erythematous and friable. This area was lavaged. There were also thick tenacious secretions in the subsegments of the left lower lung. These areas were lavaged until clear. The specimens from the right and the left were sent for the studies listed above. The patient tolerated procedure well. I allowed her to watch on video at the termination of the procedure. She had absolutely no distress and no problems. Titus could be staff was present and Kash Manzano nurse practitioner were present. Impression 1. Idiopathic pulmonary fibrosis 2. Retained secretions 3. Ineffective cough 4. Erosive friable bronchitis present in the right lower lung, lingula and left lower lung Plan. 1. Follow-up chest x-ray 2. Check bronchoscopy
--- NOTE | 2017-03-02 11:40 | Pulmonology Progress Note ---
Pulmonary - PN: Subj Interval history: Kash Manzano, ANP-BC, GNP-BC, acting as scribe for Dr. Lazarus Torres Mrs. Oliver is a 56-year-old white female who was admitted 02/24/2017 from [facility]. At admission, our impressions were: #1 Acute exacerbation of asthma, likely bacterial component due to increased WBC count with left shift refractory to outpatient treatment. #2 Possible acute left lower lobe infiltrate, sputums and blood cultures pending at this time #3 Idiopathic pulmonary fibrosis #4 Non-insulin dependent diabetes mellitus #5 Bronchiectasis #6 See past history 02/25/2017. The patient's chest x-ray is already shown improvement since admission. She had a left lower lobe infiltrate and this persists, but is improving. Sputum for Gram stain, culture and sensitivity is pending. She is presently being treated with clindamycin and meropenem. She complains this morning that her home medications have not been restarted. On review of orders , and order was submitted yesterday to ID and continue her home meds. For some reason this was not done. Nonetheless, we have resumed her home medications this morning. She has a significant cough. We considered starting Klonopin 0.5 mg twice daily, but the patient would like to wait until her home medications were restarted to see if this will help. We suspect that it will. Medications have been reviewed. Her home medications have been restarted. Labs have been reviewed. White count is 10,700 with 73.7% segs; H&H 12.2/37.7; platelet count 279,000; creatinine 0.70, BUN 10, electrolytes are normal Cold agglutinins are negative at 1:2 Legionella is pending. 02/26/2017. This patient's breathing much better she has begun to mobilize some sputum and she says that has helped a lot she is on multiple expectorants. Today I have added ventilation therapy with Pulmozyme twice a day and hopefully this will help. She has idiopathic pulmonary fibrosis and I feel certain she has areas of bronchiectasis at both bases. There are no new cultures. We had some problems getting the patient's medicines restarted properly and now several of them need to be changed from the morning to nighttime. See orders. Chest is much clearer. We will continue to treat this patient through the weekend and her perhaps early next week she will be ready for discharge. She was in outpatient treatment failure. 02/27/2017. Today's x-ray shows improvement. Left lower lung infiltrate is still present but is decreased in size. Patient has bilateral idiopathic pulmonary fibrosis which is most prominent at the bases. There are no positive cultures. Electrolytes are normal. Creatinine is 0.6 with a BUN of 14. White count was 13,300. Patient has some muscle cramps in the latissimus dorsi and her intercostal muscles on the left and I showed her how to stretch for these. She is mobilizing sputum and notes she thinks she is breathing better and I agree. 02/28/2017. Patient continues to slowly improve. She does say that her tracheal area feels raw when she takes a deep breath. She was able to get out of the room and walks some yesterday but not nearly as much as I hope. In the morning she is getting up some sputum but later in the day her cough does not produce any. Will check a follow-up chest x-ray on her tomorrow morning. Since she has idiopathic pulmonary fibrosis there is a chance we may consider bronchoscopy for additional cultures and for help with removal of retained secretions. 03/01/2017. Patient sitting up in a chair at bedside. She states that overall her breathing has improved. She continues to have a productive cough and difficulty mobilizing her secretions. We have offered fiberoptic bronchoscopy, but the patient feels that she is improving wants to hold off at this time. This is reasonable. We can consider bronchoscopy at a later date or even as an outpatient if needed. Glucose this morning fasting was 35. Notably she is on metformin 850 mg twice daily with meals and Amaryl 2 mg daily with breakfast. We will obtain a hemoglobin A1c to better clarify her diabetes mellitus. Sputum cultures only growing yeast. This was not a Fozia pneumonia. She will be treated with Diflucan 200 mg p.o. daily for 7 days. 03/02/2017. Earlier this morning the patient decided that she wanted to proceed with fiberoptic bronchoscopy. She was n.p.o. through the night. Bronchoscopy was, therefore, performed. This showed retained secretions, ineffective cough, and erosive probable bronchitis in the right lower lung, lingula, and left lower lung. The patient has known idiopathic pulmonary fibrosis. She tolerated the procedure well. Please see Dr. Torres's dictated bronchoscopy report for more information. Previous sputum culture only grew Fozia. She is on Diflucan. Will follow-up bronchoscopy results when available. The lavage should help her with her cough. Medications have been reviewed. We made no changes today. Labs been reviewed. No new labs were drawn today. Hemoglobin A1c yesterday was 7.6% showing fairly good control of her diabetes mellitus. Exam (Progress Note) - Constitutional Vitals: Period Temp Pulse Resp BP Sys/Savage Pulse Ox Last 24 Hr 97.6 F-99.8 F 78-137 14-34 102-171/68-91 87-100 Exam: On chest exam, the patient's previously noted large airway wheezes have improved. She continues to have some large airway congestion, but this improved after bronchoscopy. Inspiratory rales and squeaks in the bilateral bases have improved. Heart: No gallop Abdomen: Nontender and nondistended; bowel sounds are positive 4 Extremities: Nothing to suggest acute deep venous thrombophlebitis Psychiatric: Alert and oriented 3 Neurologic: Long tract motor function is intact Plan: Continue present treatment. Follow-up bronchoscopy results when available. If she does well the remainder of today, she will be discharged home tomorrow. Results - Labs CBC & BMP: 03/01/17 04:12 03/01/17 04:12 Specialty Discharge - Follow Up or Referrals
[2017-03-02] MEDS: FUROSEMIDE 20 MG TABLET PO SCH (11:58)
[2017-03-02] MEDS: PANTOPRAZOLE 40 MG TABLET PO SCH (11:58)
[2017-03-02] MEDS: metFORMIN 850 MG TABLET PO SCH ×2 (11:58→16:19)
[2017-03-02] MEDS: GLIMEPIRIDE 2 MG TABLET PO SCH (11:59)
[2017-03-02] MEDS: LYSINE 500 MG TABLET PO SCH (11:59)
[2017-03-02] MEDS: FLUCONAZOLE 200 MG TABLET PO SCH (11:59)
[2017-03-02] MEDS: MONTELUKAST 10 MG TABLET PO SCH ×2 (11:59→20:36)
[2017-03-02] MEDS: MULTIVITAMIN (CENTRUM) TABLET PO SCH (11:59)
[2017-03-02] MEDS: POTASSIUM IODIDE ORAL SOLN 1,000 MG/ML BOTTLE PO SCH ×3 (12:00→20:36)
[2017-03-02] MEDS: ESBRIET PO SCH ×3 (12:08→20:37)
[2017-03-02] MEDS: BREO ELLIPTA INH SCH (12:08)
[2017-03-02] MEDS: CYANOCOBALAMIN 500 MCG TABLET PO SCH (12:13)
[2017-03-02] MEDS: ASCORBIC ACID 500 MG TABLET PO SCH (20:35)
[2017-03-02] MEDS: CETIRIZINE 5 MG TABLET PO SCH (20:36)
[2017-03-02] MEDS: GABAPENTIN 300 MG CAPSULE PO SCH (20:36)
[2017-03-02] MEDS: PARoxetine 10 MG TABLET PO SCH (20:36)
[2017-03-02] MEDS: ATORVASTATIN 10 MG TABLET PO SCH (20:36)
[2017-03-03] MEDS: MEROPENEM 1,000 MG in SODIUM CHLORIDE 0.9% 100 ML IV SCH ×2 (01:29→09:14)
[2017-03-03] MEDS: CLINDAMYCIN INJ 300 MG in PREMIX 1 EACH IV SCH ×2 (04:25→04:53)
[2017-03-03] MEDS: methylPREDNISolone SOD SUC 40 MG/1 ML VIAL IV SCH (04:25)
[2017-03-03 07:27] VITALS: BP 114/65
[2017-03-03] MEDS: ALBUTEROL/IPRATROPIUM 3 ML NEB RESP TX SCH (07:30)
[2017-03-03] MEDS: DORNASE ALFA 2.5 MG/2.5 ML VIAL RESP TX SCH (07:35)
[2017-03-03] MEDS: CYANOCOBALAMIN 500 MCG TABLET PO SCH (09:11)
[2017-03-03] MEDS: BENZONATATE 100 MG CAPSULE PO SCH (09:12)
[2017-03-03] MEDS: MULTIVITAMIN (CENTRUM) TABLET PO SCH (09:12)
[2017-03-03] MEDS: MONTELUKAST 10 MG TABLET PO SCH (09:12)
[2017-03-03] MEDS: FLUCONAZOLE 200 MG TABLET PO SCH (09:12)
[2017-03-03] MEDS: LYSINE 500 MG TABLET PO SCH (09:12)
[2017-03-03] MEDS: metFORMIN 850 MG TABLET PO SCH (09:12)
[2017-03-03] MEDS: GLIMEPIRIDE 2 MG TABLET PO SCH (09:12)
[2017-03-03] MEDS: PANTOPRAZOLE 40 MG TABLET PO SCH (09:12)
[2017-03-03] MEDS: FUROSEMIDE 20 MG TABLET PO SCH (09:12)
[2017-03-03] MEDS: POTASSIUM IODIDE ORAL SOLN 1,000 MG/ML BOTTLE PO SCH (09:13)
[2017-03-03] MEDS: ESBRIET PO SCH (09:13)
[2017-03-03] MEDS: BREO ELLIPTA INH SCH (09:13)
--- NOTE | 2017-03-03 10:35 | Pulmonology Progress Note ---
Pulmonary - PN: Subj Interval history: Kash Manzano, ANP-BC, GNP-BC, acting as scribe for Dr. Lazarus Torres Mrs. Oliver is a 56-year-old white female who was admitted [facility]/24/2017 from [facility]. At admission, our impressions were: #1 Acute exacerbation of asthma, likely bacterial component due to increased WBC count with left shift refractory to outpatient treatment. #2 Possible acute left lower lobe infiltrate, sputums and blood cultures pending at this time #3 Idiopathic pulmonary fibrosis #4 Non-insulin dependent diabetes mellitus #5 Bronchiectasis #6 See past history 02/25/2017. The patient's chest x-ray is already shown improvement since admission. She had a left lower lobe infiltrate and this persists, but is improving. Sputum for Gram stain, culture and sensitivity is pending. She is presently being treated with clindamycin and meropenem. She complains this morning that her home medications have not been restarted. On review of orders , and order was submitted yesterday to ID and continue her home meds. For some reason this was not done. Nonetheless, we have resumed her home medications this morning. She has a significant cough. We considered starting Klonopin 0.5 mg twice daily, but the patient would like to wait until her home medications were restarted to see if this will help. We suspect that it will. Medications have been reviewed. Her home medications have been restarted. Labs have been reviewed. White count is 10,700 with 73.7% segs; H&H 12.2/37.7; platelet count 279,000; creatinine 0.70, BUN 10, electrolytes are normal Cold agglutinins are negative at 1:2 Legionella is pending. 02/26/2017. This patient's breathing much better she has begun to mobilize some sputum and she says that has helped a lot she is on multiple expectorants. Today I have added ventilation therapy with Pulmozyme twice a day and hopefully this will help. She has idiopathic pulmonary fibrosis and I feel certain she has areas of bronchiectasis at both bases. There are no new cultures. We had some problems getting the patient's medicines restarted properly and now several of them need to be changed from the morning to nighttime. See orders. Chest is much clearer. We will continue to treat this patient through the weekend and her perhaps early next week she will be ready for discharge. She was in outpatient treatment failure. 02/27/2017. Today's x-ray shows improvement. Left lower lung infiltrate is still present but is decreased in size. Patient has bilateral idiopathic pulmonary fibrosis which is most prominent at the bases. There are no positive cultures. Electrolytes are normal. Creatinine is 0.6 with a BUN of 14. White count was 13,300. Patient has some muscle cramps in the latissimus dorsi and her intercostal muscles on the left and I showed her how to stretch for these. She is mobilizing sputum and notes she thinks she is breathing better and I agree. 02/28/2017. Patient continues to slowly improve. She does say that her tracheal area feels raw when she takes a deep breath. She was able to get out of the room and walks some yesterday but not nearly as much as I hope. In the morning she is getting up some sputum but later in the day her cough does not produce any. Will check a follow-up chest x-ray on her tomorrow morning. Since she has idiopathic pulmonary fibrosis there is a chance we may consider bronchoscopy for additional cultures and for help with removal of retained secretions. 03/01/2017. Patient sitting up in a chair at bedside. She states that overall her breathing has improved. She continues to have a productive cough and difficulty mobilizing her secretions. We have offered fiberoptic bronchoscopy, but the patient feels that she is improving wants to hold off at this time. This is reasonable. We can consider bronchoscopy at a later date or even as an outpatient if needed. Glucose this morning fasting was 35. Notably she is on metformin 850 mg twice daily with meals and Amaryl 2 mg daily with breakfast. We will obtain a hemoglobin A1c to better clarify her diabetes mellitus. Sputum cultures only growing yeast. This was not a Fozia pneumonia. She will be treated with Diflucan 200 mg p.o. daily for 7 days. 03/02/2017. Earlier this morning the patient decided that she wanted to proceed with fiberoptic bronchoscopy. She was n.p.o. through the night. Bronchoscopy was, therefore, performed. This showed retained secretions, ineffective cough, and erosive probable bronchitis in the right lower lung, lingula, and left lower lung. The patient has known idiopathic pulmonary fibrosis. She tolerated the procedure well. Please see Dr. Torres's dictated bronchoscopy report for more information. Previous sputum culture only grew Fozia. She is on Diflucan. Will follow-up bronchoscopy results when available. The lavage should help her with her cough. 03/03/2017. Patient was seen today along with Akiko Christopher RN. Bronchoscopy Gram stain showed no organisms. Cultures pending. There is no AFB or fungus on smears. Patient has been better able to mobilize her secretions since bronchoscopy. Overall, she feels much improved. Medications have been reviewed. Labs been reviewed. No new labs were drawn today. Hemoglobin A1c 03/01/2017 was 7.6% showing fairly good control of her diabetes mellitus. Exam (Progress Note) - Constitutional Vitals: Period Temp Pulse Resp BP Sys/Savage Pulse Ox Last 24 Hr 97 F-98.4 F 76-103 16-20 114-128/65-71 94-100 Exam: On chest exam, the patient's previously noted large airway wheezes have resolved. She continues to have some mild large airway congestion, but this improved after bronchoscopy. Inspiratory rales and squeaks in the bilateral bases have improved. Heart: No gallop Abdomen: Nontender and nondistended; bowel sounds are positive 4 Extremities: Nothing to suggest acute deep venous thrombophlebitis Psychiatric: Alert and oriented 3 Neurologic: Long tract motor function is intact Plan: She is now met maximal hospital benefit and can be safely discharged home to continue outpatient treatment. Please see the discharge summary dated 2016. Results - Labs CBC & BMP: 03/01/17 04:12 03/01/17 04:12 Specialty Discharge - Follow Up or Referrals
--- NOTE | 2017-03-03 10:43 | Discharge Summary ---
Hospital Course - Hospital Course Hospital Course: Kash Manzano, ANP-BC, GNP-BC, acting as scribe for Dr. Lazarus Torres Mrs. Oliver is a 56-year-old white female who was admitted 02/24/2017 [facility]. Patient was seen that day by Cara Romano, nurse practitioner. She was noted to have an acute exacerbation of asthma, idiopathic pulmonary fibrosis, and probable acute left lower lobe infiltrate compatible with pneumonia. Patient has bronchiectasis and has significant problems mobilizing her secretions. She was in outpatient treatment failure. Given her multiple comorbidities and acute illness, it was felt in her best interest to hospitalize her for further evaluation and care. She was admitted and started on IV antibiotics with Cleocin and meropenem. She is received inhalation therapy and IV Solu-Medrol. Despite aggressive pulmonary toilet, the patient had been still unable to mobilize much of her secretions. On 03/02/2017 the patient underwent fiberoptic bronchoscopy. This showed retained secretions, ineffective cough, erosive probable bronchitis present in the right lower lung, lingula and left lower lung. Bronchoscopy Gram stain showed no organisms. At the time of discharge, cultures pending. There were no AFB or fungus seen on smears. Cytologies are pending. She will not require any more antibiotics at discharge. Post bronchoscopy, the patient's congestion is markedly improved. She is now able to take much better breath and is mobilizing her secretions more easily. She has been ambulatory and her respiratory status has remained improved. She will follow-up with Cara Romano, nurse practitioner, in approximately 1 month with a chest x-ray. She will be sent home on a tapering dose of prednisone. Cold agglutinins were negative at 1:2. Legionella was negative. Expectorated sputum Gram stain showed few gram-positive cocci in clusters, rare gram-negative rods, rare gram-positive rods, and few fungal elements. Sputum culture only grew Fozia albicans. This was not a candidate pneumonia, however. Nonetheless, this is being treated with Diflucan. Blood cultures were negative. At discharge, white count is 12,700 with 60.7% segs, 26.3% lymphs, 9.1% monos; H &H 11.3/34.5 with low to low normal indices and top normal red blood cell distribution with; platelet count 250,000; creatinine 0.50, BUN 15, sodium 139, potassium 3.9, magnesium 2.0; hemoglobin A1c 7.6%; liver function tests within normal limits; calcium 9.7, albumin 3.9, total protein 8.6; TSH and free T4 were normal at 1.990 and 0.87 respectively. For more information regarding Mrs. Oliver's past medical history, surgical history, social history, admit labs, admit x-ray and admit exam, please see the admission note dated 02/24/2017. Impression: #1 Acute exacerbation of asthma #2 Acute left lower lobe infiltrate compatible with pneumonia and secondary to gram-positive cocci, gram-negative rods, and/or gram-positive rods. Resolved. #3 Idiopathic pulmonary fibrosis #4 Non-insulin dependent diabetes mellitus #5 Bronchiectasis #6 Acute erosive probable bronchitis in the right lower lung, lingula, and left lower lung seen on bronchoscopy 03/02/2017 #7 See past history Plan: Prednisone 10 mg daily for 2 weeks then 10 mg every other day for 2 weeks , Glucophage 850 mg twice daily, Amaryl 2 mg after supper, biotin 10,000 mcg daily, Xyzal 5 mg daily, vitamin B12 1000 mcg daily, Xopenex twice daily, multivitamin daily, Lipitor 10 mg at bedtime, lysine 500 mg daily, SSKI 100 mg 3 times daily, Brio elliptical 100/25 mcg daily, albuterol nebulized as needed, gabapentin 300 mg at bedtime, vitamin C 1000 mg daily, Esbriet 801 mg 3 times daily, Singulair 10 mg daily, Lasix 20 mg daily, Tessalon 200 mg 3 times daily as needed cough, Paxil 30 mg daily, Prilosec 20 mg twice daily, Mucinex 600 mg twice daily, and Diflucan 200 mg daily 4 more days. She will be scheduled to follow-up with Cara Romano, nurse practitioner, in approximately 1 month with a chest x-ray. She can be seen sooner if needed. Specialty Discharge - Follow Up or Referrals Follow up with: Cara Romano CFNP [Advanced Practice Nurse] - 1 Month (with CXR) Discharge Plan - Discharge Data Disposition: Disch To Home/Self Care Condition at Discharge: Stable Discharge Diet: diabetic diet Activity: resume usual activities as tolerated - Discharge Medications New Fluconazole Tab [Diflucan Tab] 200 mg PO DAILY #4 tablet Potassium Iodide Oral Soln [Sski] 900 mg PO TID bottle guaiFENesin ER TAB [Mucinex] 600 mg PO BID tablet predniSONE TAB [PredniSONE] 10 mg PO DIRECTED #28 tablet Continue Cyanocobalamin (Vitamin B-12) [Vitamin B-12] 1,000 mcg SL DAILY Ascorbic Acid [Vitamin C] 1,000 mg PO DAILY Multivitamin [One Daily] 1 each PO DAILY Glimepiride [Amaryl] 2 mg PO PC SUPPER Gabapentin 300 mg PO BEDTIME Pirfenidone [Esbriet] 801 mg PO TID metFORMIN [Glucophage] 850 mg PO BID Furosemide Tab [Lasix Tab] 20 mg PO DAILY PARoxetine [Paxil] 30 mg PO DAILY Omeprazole [Prilosec] 20 mg PO BID Montelukast Tab [Singulair Tab] 10 mg PO DAILY Albuterol Sulfate [Albuterol Neb] 2.5 mg RESP TX Q3H PRN PRN Reason: Shortness Of Breath/Wheezing Fluticasone/Vilanterol [Breo Ellipta 100-25 Mcg INH] 1 puff INH DAILY No Action Potassium Iodide Oral Soln [Sski] 1,000 mg PO BID Benzonatate 200 mg PO TID PRN PRN Reason: Cough Levalbuterol HCl [Xopenex] 1.25 mg INH BID Atorvastatin [Lipitor] 10 mg PO BEDTIME Levocetirizine Dihydrochloride [Xyzal] 5 mg PO DAILY predniSONE TAB [PredniSONE] 10 mg PO QOTHER DAY Lysine HCl [l-Lysine] 500 mg PO DAILY Biotin 10,000 mcg PO DAILY - Follow Up or Referral Follow Up: Cara Romano CFNP [Advanced Practice Nurse] - 1 Month (with CXR) - Forms/Instructions Instructions: Flexible Bronchoscopy (DC) Exam - Constitutional Vitals: Period Temp Pulse Resp BP Sys/Savage Pulse Ox Last 24 Hr 97 F-98.4 F 76-103 16-20 114-128/65-71 94-100 Discharge Results Procedures and tests throughout hospitalization: Pending Orders 03/02/17 AFB Culture/Smears Stat Bronchoalveolar Lavage C & GS Stat Fungal Culture w/ Prep Stat Labs on day of discharge: Labs from last 24 hours 03/03/17 03/02/17 03/02/17 07:30 19:37 17:31 POC Glucose 179 H 238 H 152 H Legionella pneumophila Ab 03/02/17 03/02/17 02/24/17 11:31 07:25 17:32 POC Glucose 168 H 161 H Legionella pneumophila Ab Negative DS: Provider Date of admission: 02/24/17 16:30 Primary care physician: Pratibha Connell M.D. Attending physician on admission: Lazarus Torres MD Consults: 02/24/17 17:46 Consult to Pastoral Services [CONS] Routine Comment: Pastoral Screen: Request Administrative Volunteer Visit Discharging clinician: HILDA Merchant
--- NOTE | 2017-03-03 11:17 | Pathology Report from [facility] ---
[facility] ACCESSION # : [id number] PATIENT NAME : Rachelle Oliver ORDERING DR : JOVON IBANEZ MD CLINICAL HX: IPF POST-OP DX: Same SPECIMEN INFO: Washing,Bronchial,CHIARA - 15 mls greyish white, cloudy CLASS: I CLASS COMMENTS: Benign respiratory cells, inflammationCELL BLOCK: Same CLASS LEGEND: CLASS 0 Material inadequate for diagnosis because of (see comment) CLASS I Absence of atypical or abnormal cells CLASS II Atypical Cytology but no evidence of malignancy CLASS III Cytology suggestive of but not conclusive for malignancy CLASS IV Cytology strongly suggestive of malignancy CLASS V Cytology conclusive for malignancy COLLECTED DATE: 03/02/2017 [facility] REPORT DATE: 03/03/2017 ELECTRONICALLY SIGNED BY: Tania Agrawal M.D. 03/03/2017 - 8:37:13 MTDDevin
== END 2017-03-03 12:04 | disposition home or self-care (01) | DRG 166 ==
LOC: N.5E 16:30
PROVIDERS: ADMIT Internal Medicine Pulmonary Disease; ATTEND Internal Medicine Pulmonary Disease

== ENCOUNTER 2017-09-09 14:35 | Inpatient (IN) ==
[2017-09-09] MEDS ORDERED: SODIUM CHLORIDE 0.9% 500 ML IV STA (16:22)
[2017-09-09] MEDS ORDERED: ALBUTEROL/IPRATROPIUM 3 ML NEB RESP TX STA (16:22)
[2017-09-09 16:32] LABS: Basophils # 0.1 10*3/uL (0.0-0.2); Basophils % 0.3 % (0.0-0.8); Eosinophils # 0.4 10*3/uL (0.0-0.87); Eosinophils % 2.5 % (0.00-10.9); Hematocrit 36.7 VOL% (35.7-47.0); Hemoglobin 12.2 GM/DL (12.0-16.0); Immature Granulocytes % 0.9 %; Immature Granulocytes Absolute 0.14 #; Lymphocytes # 1.1 10*3/uL (1.4-4.0); Lymphocytes % 6.6 % (21.3-54.2); Mean Corpuscular HGB Conc 33.2 GM/DL (32-36); Mean Corpuscular Hemoglobin 28 PG (27-34); Mean Corpuscular Volume 85.3 FL (87-102); Mean Platelet Volume 10.8 FL (9.6-12.0); Monocytes # 1.2 10*3/uL (0.11-0.8); Monocytes % 7.5 % (1.7-12.7); Neutrophils # 13.1 10*3/uL (1.4-7.4); Neutrophils % 82.2 % (38.7-73.9); Platelet Count 225 T/CUMM (130-400); Red Cell Distribution Width 16.7 % (9.3-17.3); White Blood Count 15.9 T/CUMM (4-12)
[2017-09-09 16:36] LABS: PT Patient Result 10.7 SECS
[2017-09-09 16:51] LABS: Alanine Aminotransferase 28 U/L (13-56); Albumin 3.3 G/DL (3.4-5.0); Alkaline Phosphatase 62 U/L (45-117); Aspartate Amino Transferase 13 U/L (0-37); Blood Urea Nitrogen 10 MG/DL (7-18); Calcium 8.9 MG/DL (8.5-10.1); Glucose 228 MG/DL (74-106); Magnesium 1.6 MG/DL (1.8-2.4); Osmolality,Calculated 271.4 MOS/KG (273-304); Potassium 3.2 MMOL/L (3.5-5.1); Sodium 133 MMOL/L (136-145); Total Protein 7.6 G/DL (6.4-8.3); Troponin I Only < 0.015 NG/ML (0.00-0.045)
[2017-09-09] MEDS ORDERED: MAGNESIUM SULF RIDER 2 GM in PREMIX 1 EACH IV STA (17:02)
[2017-09-09] MEDS ORDERED: POTASSIUM CHLORIDE 20 MEQ TABLET PO STA (17:02)
[2017-09-09 17:07] LABS: ABG Base Excess 7.2 MMOL/L (-2.5-2.5); ABG HCO3 31.3 MMOL/L (20-26); ABG Oxygen Saturation 97.8 % (95-100); ABG PO2 97.3 MM HG (80-95); ABG TCO2 32.6 MMOL/L (23-27)
[2017-09-09] MEDS ORDERED: POTASSIUM CHLORIDE 20 MEQ TABLET PO ONE (17:19)
[2017-09-09] MEDS ORDERED: MAGNESIUM SULF RIDER 50 ML IV ONE (17:19)
[2017-09-09 18:22] LABS: Apearance,Urine Slightly Hazy (Clear); Bilirubin,Urine Negative (Negative); Blood, Urine Negative (Negative); Glucose,Urine (UA) Negative (Negative); Ketones,Urine 20 mg/dL (Negative); Mucus,Urine Occasional /LPF (Occasional); Nitrite,Urine Negative (Negative); Protein,Urine Negative; RBC,Urine <1 /HPF (0-4); Squamous Epithelial Cell,Urine Occasional /HPF (0-10); Urine Color Yellow (Yellow); Urine Urobilinogen < 2.0 EU/DL (0.2-1.0); WBC,Urine 1 /HPF (0-6)
[2017-09-09] MEDS ORDERED: cefTRIAXone 1,000 MG in SODIUM CHLORIDE 0.9% 100 ML IV STA (19:13)
[2017-09-09] MEDS ORDERED: cefTRIAXone 1,000 MG VIAL ONE (19:20)
[2017-09-09] MEDS ORDERED: GLUCAGON 1 MG VIAL IM PRN (20:50)
[2017-09-09] MEDS ORDERED: MORPHINE 2 MG/1 ML SYRINGE IV PRN (20:50)
[2017-09-09] MEDS ORDERED: ALBUTEROL 1.25 MG/3 ML NEB RESP TX PRN (20:50)
[2017-09-09] MEDS ORDERED: DEXTROSE 50% 25 GM/50 ML VIAL IV PRN (20:50)
[2017-09-09] MEDS ORDERED: ONDANSETRON 4 MG/2 ML VIAL IV PRN (20:50)
[2017-09-09] MEDS ORDERED: ACETAMINOPHEN 325 MG TABLET PO PRN (20:50)
[2017-09-09] MEDS ORDERED: PIRFENIDONE 801 MG PO SCH (21:00)
[2017-09-09] MEDS: SODIUM CHLORIDE 0.9% 1,000 ML IV SCH (21:06)
[2017-09-09] MEDS: MONTELUKAST 10 MG TABLET PO SCH (22:44)
[2017-09-09] MEDS: ENOXAPARIN 40 MG/0.4 ML SYRINGE SUBCUT SCH (22:45)
[2017-09-09] MEDS: POTASSIUM IODIDE ORAL SOLN 1,000 MG/ML BOTTLE PO SCH (22:45)
[2017-09-09] MEDS: DICLOFENAC 1% GEL 100 GM TUBE TOP SCH (22:45)
[2017-09-09] MEDS: DOCUSATE SODIUM 100 MG CAPSULE PO SCH (22:46)
[2017-09-09] MEDS: GABAPENTIN 300 MG CAPSULE PO SCH (22:46)
[2017-09-09] MEDS: ATORVASTATIN 10 MG TABLET PO SCH (22:46)
[2017-09-09] MEDS: methylPREDNISolone SOD SUC 40 MG/1 ML VIAL IV SCH (22:48)
[2017-09-10] MEDS: INSULIN REGULAR 100 UNIT/ML SUBCUT SCH ×4 (00:15→18:14)
[2017-09-10] MEDS: ALBUTEROL 1.25 MG/3 ML NEB RESP TX SCH ×4 (01:04→18:19)
[2017-09-10 02:04] LABS: Calcium 8.4 MG/DL (8.5-10.1); Magnesium 2.5 MG/DL (1.8-2.4); Osmolality,Calculated 293.1 MOS/KG (273-304); Potassium 4.3 MMOL/L (3.5-5.1)
[2017-09-10] MEDS: LEVOFLOXACIN INJ 750 MG in PREMIX 1 EACH IV SCH (04:07)
[2017-09-10] MEDS ORDERED: FUROSEMIDE 20 MG TABLET PO SCH (09:00)
[2017-09-10] MEDS: CELECOXIB 200 MG CAPSULE PO SCH (10:06)
[2017-09-10] MEDS: GLIMEPIRIDE 4 MG TABLET PO SCH (10:06)
[2017-09-10] MEDS: DOCUSATE SODIUM 100 MG CAPSULE PO SCH ×2 (10:07→20:59)
[2017-09-10] MEDS: PARoxetine 20 MG TABLET PO SCH (10:07)
[2017-09-10] MEDS: PANTOPRAZOLE 40 MG TABLET PO SCH (10:08)
[2017-09-10] MEDS: methylPREDNISolone SOD SUC 40 MG/1 ML VIAL IV SCH ×2 (10:08→20:59)
[2017-09-10] MEDS: FLUTICASONE 50 MCG NASAL SPRAY 16 GM BOTTLE BOTH NARES SCH (10:38)
[2017-09-10] MEDS: POTASSIUM IODIDE ORAL SOLN 1,000 MG/ML BOTTLE PO SCH ×3 (10:41→21:09)
[2017-09-10] MEDS: DICLOFENAC 1% GEL 100 GM TUBE TOP SCH ×4 (10:42→20:59)
[2017-09-10] MEDS ORDERED: GLUCAGON 1 MG VIAL IM PRN (11:20)
[2017-09-10] MEDS ORDERED: DEXTROSE 50% 25 GM/50 ML VIAL IV PRN (11:20)
[2017-09-10] MEDS: SODIUM CHLORIDE 0.9% 1,000 ML IV SCH (11:48)
[2017-09-10 11:52] LABS: Free T4 (Free Thyroxine) 0.93 NG/DL (0.76-1.46); Thyroid Stimulating Hormone 0.334 uIU/ml (0.358-3.74)
[2017-09-10] MEDS ORDERED: ASCORBIC ACID 1000 MG PO SCH (16:00)
[2017-09-10] MEDS ORDERED: MAGNESIUM SULF RIDER 2 GM in PREMIX 1 EACH IV PRN (16:26)
[2017-09-10] MEDS ORDERED: MAGNESIUM SULF RIDER 4 GM in PREMIX 1 EACH IV PRN (16:26)
[2017-09-10] MEDS: metFORMIN 850 MG TABLET PO SCH (16:37)
[2017-09-10] MEDS ORDERED: DICLOFENAC 1% GEL 100 GM TUBE TOP SCH (17:00)
[2017-09-10] MEDS: GLIMEPIRIDE 2 MG TABLET PO SCH (18:13)
[2017-09-10] MEDS: ATORVASTATIN 10 MG TABLET PO SCH (20:58)
[2017-09-10] MEDS: MONTELUKAST 10 MG TABLET PO SCH (20:58)
[2017-09-10] MEDS: CARVEDILOL 6.25 MG TABLET PO SCH (20:59)
[2017-09-10] MEDS: ENOXAPARIN 40 MG/0.4 ML SYRINGE SUBCUT SCH ×2 (20:59→21:17)
[2017-09-10] MEDS: GABAPENTIN 300 MG CAPSULE PO SCH (20:59)
[2017-09-11] MEDS: ALBUTEROL 1.25 MG/3 ML NEB RESP TX SCH ×4 (01:00→21:31)
[2017-09-11] MEDS: SODIUM CHLORIDE 0.9% 1,000 ML IV SCH (02:10)
[2017-09-11] MEDS: INSULIN REGULAR 100 UNIT/ML SUBCUT SCH ×4 (02:19→18:08)
[2017-09-11] MEDS: LEVOFLOXACIN INJ 750 MG in PREMIX 1 EACH IV SCH (04:14)
[2017-09-11 05:49] LABS: Basophils % 0.2 % (0.0-0.8); Eosinophils % 0.2 % (0.00-10.9); Hemoglobin 10.5 GM/DL (12.0-16.0); Immature Granulocytes % 1.7 %; Immature Granulocytes Absolute 0.17 #; Lymphocytes # 1.3 10*3/uL (1.4-4.0); Lymphocytes % 13.1 % (21.3-54.2); Mean Corpuscular HGB Conc 31.8 GM/DL (32-36); Mean Corpuscular Hemoglobin 28 PG (27-34); Mean Corpuscular Volume 86.8 FL (87-102); Mean Platelet Volume 11.6 FL (9.6-12.0); Monocytes # 0.5 10*3/uL (0.11-0.8); Monocytes % 4.9 % (1.7-12.7); Neutrophils # 7.9 10*3/uL (1.4-7.4); Neutrophils % 79.9 % (38.7-73.9); Platelet Count 226 T/CUMM (130-400); White Blood Count 9.9 T/CUMM (4-12)
[2017-09-11 06:29] LABS: Calcium 8.6 MG/DL (8.5-10.1); Magnesium 2.2 MG/DL (1.8-2.4); Osmolality,Calculated 290.4 MOS/KG (273-304); Potassium 4.6 MMOL/L (3.5-5.1)
[2017-09-11 06:40] LABS: Risk Ratio 1.91; VLDL CHOLESTEROL 19.6 MG/DL
[2017-09-11] MEDS: DOCUSATE SODIUM 100 MG CAPSULE PO SCH ×2 (09:16→20:59)
[2017-09-11] MEDS: GLIMEPIRIDE 4 MG TABLET PO SCH (09:16)
[2017-09-11] MEDS: metFORMIN 850 MG TABLET PO SCH ×2 (09:16→18:03)
[2017-09-11] MEDS: CELECOXIB 200 MG CAPSULE PO SCH (09:16)
[2017-09-11] MEDS: CARVEDILOL 6.25 MG TABLET PO SCH ×2 (09:17→20:59)
[2017-09-11] MEDS: PARoxetine 20 MG TABLET PO SCH (09:17)
[2017-09-11] MEDS: FLUTICASONE 50 MCG NASAL SPRAY 16 GM BOTTLE BOTH NARES SCH (09:17)
[2017-09-11] MEDS: ASCORBIC ACID 500 MG TABLET PO SCH (09:18)
[2017-09-11] MEDS: PANTOPRAZOLE 40 MG TABLET PO SCH (09:18)
[2017-09-11] MEDS: POTASSIUM IODIDE ORAL SOLN 1,000 MG/ML BOTTLE PO SCH ×3 (09:19→20:59)
[2017-09-11] MEDS: DICLOFENAC 1% GEL 100 GM TUBE TOP SCH ×4 (09:19→21:00)
[2017-09-11] MEDS: methylPREDNISolone SOD SUC 40 MG/1 ML VIAL IV SCH (09:25)
[2017-09-11] MEDS: methylPREDNISolone SOD SUC 125 MG/2 ML VIAL IV SCH ×2 (12:24→18:04)
[2017-09-11] MEDS: GLIMEPIRIDE 2 MG TABLET PO SCH (18:03)
[2017-09-11] MEDS: MONTELUKAST 10 MG TABLET PO SCH (20:53)
[2017-09-11] MEDS: GABAPENTIN 300 MG CAPSULE PO SCH (20:53)
[2017-09-11] MEDS: INSULIN GLARGINE 100 UNIT/ML SUBCUT SCH (20:59)
[2017-09-11] MEDS: ATORVASTATIN 10 MG TABLET PO SCH (20:59)
[2017-09-12] MEDS: methylPREDNISolone SOD SUC 125 MG/2 ML VIAL IV SCH ×4 (01:20→17:55)
[2017-09-12] MEDS: ALBUTEROL 1.25 MG/3 ML NEB RESP TX SCH ×4 (01:25→20:11)
[2017-09-12] MEDS: INSULIN REGULAR 100 UNIT/ML SUBCUT SCH ×4 (01:30→18:06)
[2017-09-12] MEDS: INSULIN GLARGINE 100 UNIT/ML SUBCUT SCH (01:31)
[2017-09-12] MEDS: LEVOFLOXACIN INJ 750 MG in PREMIX 1 EACH IV SCH (04:59)
[2017-09-12 05:19] LABS: Basophils % 0.2 % (0.0-0.8); Eosinophils % 0.1 % (0.00-10.9); Hematocrit 34.8 VOL% (35.7-47.0); Immature Granulocytes % 1.7 %; Immature Granulocytes Absolute 0.18 #; Lymphocytes # 1.1 10*3/uL (1.4-4.0); Lymphocytes % 10.1 % (21.3-54.2); Mean Corpuscular HGB Conc 31.6 GM/DL (32-36); Mean Corpuscular Hemoglobin 27 PG (27-34); Mean Corpuscular Volume 86.8 FL (87-102); Mean Platelet Volume 11.1 FL (9.6-12.0); Monocytes # 0.4 10*3/uL (0.11-0.8); Monocytes % 3.5 % (1.7-12.7); Neutrophils # 9.1 10*3/uL (1.4-7.4); Neutrophils % 84.4 % (38.7-73.9); Platelet Count 222 T/CUMM (130-400); Red Blood Count 4.01 MC/CUMM (3.8-5.5); Red Cell Distribution Width 16.9 % (9.3-17.3); White Blood Count 10.7 T/CUMM (4-12)
[2017-09-12 05:48] LABS: Calcium 9.3 MG/DL (8.5-10.1); Magnesium 2.2 MG/DL (1.8-2.4); Osmolality,Calculated 290.4 MOS/KG (273-304); Potassium 4.6 MMOL/L (3.5-5.1)
[2017-09-12] MEDS: GLIMEPIRIDE 4 MG TABLET PO SCH (09:42)
[2017-09-12] MEDS: metFORMIN 850 MG TABLET PO SCH ×2 (09:42→17:54)
[2017-09-12] MEDS: CELECOXIB 200 MG CAPSULE PO SCH (09:43)
[2017-09-12] MEDS: CARVEDILOL 6.25 MG TABLET PO SCH ×2 (09:43→21:28)
[2017-09-12] MEDS: DOCUSATE SODIUM 100 MG CAPSULE PO SCH ×2 (09:43→21:26)
[2017-09-12] MEDS: PARoxetine 20 MG TABLET PO SCH (09:43)
[2017-09-12] MEDS: POTASSIUM IODIDE ORAL SOLN 1,000 MG/ML BOTTLE PO SCH ×3 (09:44→21:27)
[2017-09-12] MEDS: ASCORBIC ACID 500 MG TABLET PO SCH (09:44)
[2017-09-12] MEDS: FLUTICASONE 50 MCG NASAL SPRAY 16 GM BOTTLE BOTH NARES SCH (09:44)
[2017-09-12] MEDS: PANTOPRAZOLE 40 MG TABLET PO SCH (09:44)
[2017-09-12] MEDS: DICLOFENAC 1% GEL 100 GM TUBE TOP SCH ×4 (09:50→21:26)
[2017-09-12] MEDS: GLIMEPIRIDE 2 MG TABLET PO SCH (17:54)
[2017-09-12] MEDS ORDERED: INSULIN GLARGINE 100 UNIT/ML SUBCUT SCH (21:00)
[2017-09-12] MEDS: ATORVASTATIN 10 MG TABLET PO SCH (21:26)
[2017-09-12] MEDS: MONTELUKAST 10 MG TABLET PO SCH (21:26)
[2017-09-12] MEDS: GABAPENTIN 300 MG CAPSULE PO SCH (21:26)
[2017-09-13] MEDS: ALBUTEROL 1.25 MG/3 ML NEB RESP TX SCH ×4 (00:54→23:10)
[2017-09-13] MEDS: methylPREDNISolone SOD SUC 125 MG/2 ML VIAL IV SCH ×5 (00:56→23:48)
[2017-09-13] MEDS: INSULIN REGULAR 100 UNIT/ML SUBCUT SCH ×5 (01:05→23:46)
[2017-09-13] MEDS: LEVOFLOXACIN INJ 750 MG in PREMIX 1 EACH IV SCH (04:14)
[2017-09-13 05:47] LABS: Basophils % 0.1 % (0.0-0.8); Hematocrit 35.2 VOL% (35.7-47.0); Hemoglobin 11.5 GM/DL (12.0-16.0); Immature Granulocytes % 2.2 %; Immature Granulocytes Absolute 0.31 #; Lymphocytes # 1.5 10*3/uL (1.4-4.0); Lymphocytes % 10.6 % (21.3-54.2); Mean Corpuscular HGB Conc 32.7 GM/DL (32-36); Mean Corpuscular Hemoglobin 28 PG (27-34); Mean Corpuscular Volume 86.1 FL (87-102); Mean Platelet Volume 10.7 FL (9.6-12.0); Monocytes # 0.6 10*3/uL (0.11-0.8); Monocytes % 4.4 % (1.7-12.7); Neutrophils # 11.8 10*3/uL (1.4-7.4); Neutrophils % 82.7 % (38.7-73.9); Platelet Count 259 T/CUMM (130-400); Red Blood Count 4.09 MC/CUMM (3.8-5.5); Red Cell Distribution Width 16.6 % (9.3-17.3); White Blood Count 14.2 T/CUMM (4-12)
[2017-09-13 06:14] LABS: Calcium 9.1 MG/DL (8.5-10.1); Magnesium 2.3 MG/DL (1.8-2.4); Osmolality,Calculated 287.7 MOS/KG (273-304); Potassium 4.9 MMOL/L (3.5-5.1)
[2017-09-13] MEDS: POTASSIUM IODIDE ORAL SOLN 1,000 MG/ML BOTTLE PO SCH ×3 (09:14→20:43)
[2017-09-13] MEDS: FLUTICASONE 50 MCG NASAL SPRAY 16 GM BOTTLE BOTH NARES SCH (09:14)
[2017-09-13] MEDS: DOCUSATE SODIUM 100 MG CAPSULE PO SCH ×2 (09:16→20:42)
[2017-09-13] MEDS: CARVEDILOL 6.25 MG TABLET PO SCH ×2 (09:16→20:42)
[2017-09-13] MEDS: CELECOXIB 200 MG CAPSULE PO SCH (09:17)
[2017-09-13] MEDS: metFORMIN 850 MG TABLET PO SCH ×2 (09:17→17:31)
[2017-09-13] MEDS: ASCORBIC ACID 500 MG TABLET PO SCH (09:17)
[2017-09-13] MEDS: PANTOPRAZOLE 40 MG TABLET PO SCH (09:18)
[2017-09-13] MEDS: PARoxetine 20 MG TABLET PO SCH (09:18)
[2017-09-13] MEDS: GLIMEPIRIDE 4 MG TABLET PO SCH (09:18)
[2017-09-13] MEDS: DICLOFENAC 1% GEL 100 GM TUBE TOP SCH ×4 (09:19→20:46)
[2017-09-13] MEDS ORDERED: BENZONATATE 100 MG CAPSULE PO PRN (09:57)
[2017-09-13] MEDS: CYANOCOBALAMIN 500 MCG TABLET PO SCH (11:09)
[2017-09-13] MEDS: SUCRALFATE 1 GM TABLET PO SCH ×3 (11:09→20:42)
[2017-09-13] MEDS ORDERED: AMINOPHYLLINE 250 MG in SODIUM CHLORIDE 0.9% 100 ML IV ONE (11:30)
[2017-09-13] MEDS: BENZONATATE 100 MG CAPSULE PO SCH ×3 (12:05→20:42)
[2017-09-13] MEDS: AZELASTINE NASAL 137 MCG/SPRAY 30 ML BOTTLE BOTH NARES SCH ×2 (12:24→20:41)
[2017-09-13] MEDS ORDERED: AMINOPHYLLINE 500 MG in SODIUM CHLORIDE 0.9% 480 ML IV SCH (16:00)
[2017-09-13] MEDS: GLIMEPIRIDE 2 MG TABLET PO SCH (17:30)
[2017-09-13] MEDS: LACTOBACILLUS RHAMNOSUS GG CAPSULE PO SCH (17:31)
[2017-09-13] MEDS: guaiFENesin/DM ER 600-30 MG TABLET PO PRN (20:41)
[2017-09-13] MEDS: ATORVASTATIN 10 MG TABLET PO SCH (20:41)
[2017-09-13] MEDS: GABAPENTIN 300 MG CAPSULE PO SCH (20:41)
[2017-09-13] MEDS: MONTELUKAST 10 MG TABLET PO SCH (20:41)
[2017-09-13] MEDS: CHOLECALCIFEROL 1,000 UNIT TABLET PO SCH (20:46)
[2017-09-13] MEDS ORDERED: INSULIN GLARGINE 100 UNIT/ML SUBCUT SCH (21:00)
[2017-09-14] MEDS: ALBUTEROL/IPRATROPIUM 3 ML NEB RESP TX SCH ×3 (00:10→19:18)
[2017-09-14] MEDS: LEVOFLOXACIN INJ 750 MG in PREMIX 1 EACH IV SCH (03:15)
[2017-09-14] MEDS: INSULIN REGULAR 100 UNIT/ML SUBCUT SCH ×3 (05:47→17:30)
[2017-09-14] MEDS: methylPREDNISolone SOD SUC 125 MG/2 ML VIAL IV SCH ×3 (05:48→19:16)
[2017-09-14] MEDS: ALBUTEROL 1.25 MG/3 ML NEB RESP TX SCH (07:36)
[2017-09-14] MEDS: metFORMIN 850 MG TABLET PO SCH ×2 (09:33→17:30)
[2017-09-14] MEDS: CYANOCOBALAMIN 500 MCG TABLET PO SCH (09:33)
[2017-09-14] MEDS: CELECOXIB 200 MG CAPSULE PO SCH (09:33)
[2017-09-14] MEDS: POTASSIUM IODIDE ORAL SOLN 1,000 MG/ML BOTTLE PO SCH ×3 (09:33→20:18)
[2017-09-14] MEDS: PARoxetine 20 MG TABLET PO SCH (09:34)
[2017-09-14] MEDS: BENZONATATE 100 MG CAPSULE PO SCH ×3 (09:34→20:15)
[2017-09-14] MEDS: ASCORBIC ACID 500 MG TABLET PO SCH (09:34)
[2017-09-14] MEDS: GLIMEPIRIDE 4 MG TABLET PO SCH (09:34)
[2017-09-14] MEDS: SUCRALFATE 1 GM TABLET PO SCH ×4 (09:34→20:16)
[2017-09-14] MEDS: CARVEDILOL 6.25 MG TABLET PO SCH ×2 (09:34→20:16)
[2017-09-14] MEDS: PANTOPRAZOLE 40 MG TABLET PO SCH (09:34)
[2017-09-14] MEDS: DOCUSATE SODIUM 100 MG CAPSULE PO SCH ×2 (09:35→20:15)
[2017-09-14] MEDS: FLUTICASONE 50 MCG NASAL SPRAY 16 GM BOTTLE BOTH NARES SCH (09:35)
[2017-09-14] MEDS: AZELASTINE NASAL 137 MCG/SPRAY 30 ML BOTTLE BOTH NARES SCH ×2 (09:35→20:18)
[2017-09-14] MEDS: DICLOFENAC 1% GEL 100 GM TUBE TOP SCH ×4 (09:40→20:18)
[2017-09-14] MEDS ORDERED: ALBUTEROL/IPRATROPIUM 3 ML NEB RESP TX PRN (11:25)
[2017-09-14] MEDS ORDERED: THEOPHYLLINE ER 200 MG TABLET PO SCH (11:25)
[2017-09-14] MEDS: THEOPHYLLINE ER (24 HR) 400 MG CAPSULE PO SCH (12:52)
[2017-09-14] MEDS: ALBUTEROL 0.4 MG/ML 30 ML/BOTTLE PO SCH ×2 (15:00→22:50)
[2017-09-14] MEDS: GLIMEPIRIDE 2 MG TABLET PO SCH (17:30)
[2017-09-14] MEDS: LACTOBACILLUS RHAMNOSUS GG CAPSULE PO SCH (17:30)
[2017-09-14] MEDS: INSULIN GLARGINE 100 UNIT/ML SUBCUT SCH (20:14)
[2017-09-14] MEDS: guaiFENesin/DM ER 600-30 MG TABLET PO PRN (20:17)
[2017-09-14] MEDS: CHOLECALCIFEROL 1,000 UNIT TABLET PO SCH (20:17)
[2017-09-14] MEDS: GABAPENTIN 300 MG CAPSULE PO SCH (20:18)
[2017-09-14] MEDS: MONTELUKAST 10 MG TABLET PO SCH (20:18)
[2017-09-14] MEDS: ATORVASTATIN 10 MG TABLET PO SCH (20:18)
[2017-09-15] MEDS: INSULIN REGULAR 100 UNIT/ML SUBCUT SCH ×4 (00:42→18:18)
[2017-09-15] MEDS: methylPREDNISolone SOD SUC 125 MG/2 ML VIAL IV SCH (04:11)
[2017-09-15] MEDS: LEVOFLOXACIN INJ 750 MG in PREMIX 1 EACH IV SCH (04:11)
[2017-09-15] MEDS: ALBUTEROL 0.4 MG/ML 30 ML/BOTTLE PO SCH ×3 (05:47→22:29)
[2017-09-15] MEDS: ALBUTEROL/IPRATROPIUM 3 ML NEB RESP TX SCH ×3 (07:28→19:38)
[2017-09-15] MEDS: PANTOPRAZOLE 40 MG TABLET PO SCH (09:32)
[2017-09-15] MEDS: GLIMEPIRIDE 4 MG TABLET PO SCH (09:32)
[2017-09-15] MEDS: CELECOXIB 200 MG CAPSULE PO SCH (09:32)
[2017-09-15] MEDS: BENZONATATE 100 MG CAPSULE PO SCH ×3 (09:33→20:43)
[2017-09-15] MEDS: CARVEDILOL 6.25 MG TABLET PO SCH ×2 (09:34→20:43)
[2017-09-15] MEDS: DOCUSATE SODIUM 100 MG CAPSULE PO SCH ×2 (09:35→20:42)
[2017-09-15] MEDS: SUCRALFATE 1 GM TABLET PO SCH ×4 (09:39→20:43)
[2017-09-15] MEDS: CYANOCOBALAMIN 500 MCG TABLET PO SCH (09:40)
[2017-09-15] MEDS: ASCORBIC ACID 500 MG TABLET PO SCH (09:40)
[2017-09-15] MEDS: PARoxetine 20 MG TABLET PO SCH (09:40)
[2017-09-15] MEDS: metFORMIN 850 MG TABLET PO SCH ×2 (09:41→18:17)
[2017-09-15] MEDS: DICLOFENAC 1% GEL 100 GM TUBE TOP SCH ×4 (09:43→20:45)
[2017-09-15] MEDS: POTASSIUM IODIDE ORAL SOLN 1,000 MG/ML BOTTLE PO SCH ×3 (09:46→20:41)
[2017-09-15] MEDS: FLUTICASONE 50 MCG NASAL SPRAY 16 GM BOTTLE BOTH NARES SCH (09:46)
[2017-09-15] MEDS: AZELASTINE NASAL 137 MCG/SPRAY 30 ML BOTTLE BOTH NARES SCH ×2 (09:49→20:44)
[2017-09-15] MEDS ORDERED: FUROSEMIDE 40 MG/4 ML VIAL IV ONE (11:04)
[2017-09-15] MEDS ORDERED: POTASSIUM CHLORIDE 20 MEQ TABLET PO ONE (11:04)
[2017-09-15] MEDS: methylPREDNISolone SOD SUC 40 MG/1 ML VIAL IV SCH ×2 (11:55→22:29)
[2017-09-15] MEDS: THEOPHYLLINE ER (24 HR) 400 MG CAPSULE PO SCH (12:04)
[2017-09-15] MEDS: BACITRACIN OINT 0.9 GM PACK TOP SCH ×2 (16:28→20:43)
[2017-09-15] MEDS: LACTOBACILLUS RHAMNOSUS GG CAPSULE PO SCH (18:17)
[2017-09-15] MEDS: GLIMEPIRIDE 2 MG TABLET PO SCH (18:17)
[2017-09-15] MEDS: GABAPENTIN 300 MG CAPSULE PO SCH (20:42)
[2017-09-15] MEDS: MONTELUKAST 10 MG TABLET PO SCH (20:42)
[2017-09-15] MEDS: CHOLECALCIFEROL 1,000 UNIT TABLET PO SCH (20:43)
[2017-09-15] MEDS: ATORVASTATIN 10 MG TABLET PO SCH (20:43)
[2017-09-15] MEDS: INSULIN GLARGINE 100 UNIT/ML SUBCUT SCH (20:44)
[2017-09-16] MEDS: INSULIN REGULAR 100 UNIT/ML SUBCUT SCH ×4 (02:17→18:28)
[2017-09-16] MEDS: ALBUTEROL/IPRATROPIUM 3 ML NEB RESP TX SCH ×4 (03:40→21:17)
[2017-09-16] MEDS: LEVOFLOXACIN INJ 750 MG in PREMIX 1 EACH IV SCH (04:13)
[2017-09-16] MEDS: ALBUTEROL 0.4 MG/ML 30 ML/BOTTLE PO SCH ×3 (06:23→22:38)
[2017-09-16 07:22] LABS: Basophils # 0.1 10*3/uL (0.0-0.2); Basophils % 0.5 % (0.0-0.8); Eosinophils # 0.1 10*3/uL (0.0-0.87); Eosinophils % 0.4 % (0.00-10.9); Hemoglobin 11.6 GM/DL (12.0-16.0); Immature Granulocytes % 6.9 %; Lymphocytes # 2.5 10*3/uL (1.4-4.0); Lymphocytes % 19.2 % (21.3-54.2); Mean Corpuscular HGB Conc 31.4 GM/DL (32-36); Mean Corpuscular Hemoglobin 28 PG (27-34); Mean Corpuscular Volume 87.7 FL (87-102); Monocytes % 7.9 % (1.7-12.7); Neutrophils # 8.5 10*3/uL (1.4-7.4); Neutrophils % 65.1 % (38.7-73.9); Platelet Count 264 T/CUMM (130-400); Red Blood Count 4.22 MC/CUMM (3.8-5.5); Red Cell Distribution Width 16.6 % (9.3-17.3)
[2017-09-16] MEDS ORDERED: diphenhydrAMINE 50 MG/1 ML VIAL IM ONE (07:30)
[2017-09-16] MEDS ORDERED: MEPERIDINE 50 MG/1 ML VIAL IM ONE (07:30)
[2017-09-16] MEDS ORDERED: BENZONATATE 100 MG CAPSULE PO ONE (07:30)
[2017-09-16 07:34] LABS: Partial Thromboplastin Time 24.3 SECS (0-40)
[2017-09-16 07:50] LABS: Calcium 8.2 MG/DL (8.5-10.1); Potassium 4.5 MMOL/L (3.5-5.1)
[2017-09-16 07:56] LABS: Giant Platelets Few; Hypochromasia 1+; Lymphocytes 15 % (20-55); Ovalocytes Slight; Platelet Estimate Adequate; Segmented Neutrophils 79 % (50-85); Total Cells Counted 100
[2017-09-16] MEDS ORDERED: LIDOCAINE 1% 20 ML VIAL MISC INJ ONE (08:00)
[2017-09-16] MEDS ORDERED: LIDOCAINE 2% 20 ML VIAL RESP TX ONE (08:00)
[2017-09-16] MEDS ORDERED: LIDOCAINE 2% VISCOUS 100 ML BOTTLE SWISH/SPIT ONE (08:00)
[2017-09-16] MEDS ORDERED: MIDAZOLAM 2 MG/2 ML VIAL ONE (08:49)
[2017-09-16] MEDS: SUCRALFATE 1 GM TABLET PO SCH ×4 (11:17→22:10)
[2017-09-16] MEDS: BENZONATATE 100 MG CAPSULE PO SCH ×3 (11:18→22:10)
[2017-09-16] MEDS: AZELASTINE NASAL 137 MCG/SPRAY 30 ML BOTTLE BOTH NARES SCH ×2 (11:18→22:08)
[2017-09-16] MEDS: GLIMEPIRIDE 4 MG TABLET PO SCH (12:29)
[2017-09-16] MEDS: metFORMIN 850 MG TABLET PO SCH ×2 (12:29→18:27)
[2017-09-16] MEDS: BACITRACIN OINT 0.9 GM PACK TOP SCH ×3 (12:29→22:13)
[2017-09-16] MEDS: POTASSIUM IODIDE ORAL SOLN 1,000 MG/ML BOTTLE PO SCH ×3 (12:30→22:14)
[2017-09-16] MEDS: DICLOFENAC 1% GEL 100 GM TUBE TOP SCH ×4 (12:30→22:11)
[2017-09-16] MEDS: methylPREDNISolone SOD SUC 40 MG/1 ML VIAL IV SCH ×2 (13:59→22:38)
[2017-09-16] MEDS: FLUTICASONE 50 MCG NASAL SPRAY 16 GM BOTTLE BOTH NARES SCH (14:00)
[2017-09-16] MEDS: PARoxetine 20 MG TABLET PO SCH (14:07)
[2017-09-16] MEDS: THEOPHYLLINE ER (24 HR) 400 MG CAPSULE PO SCH (14:08)
[2017-09-16] MEDS: ASCORBIC ACID 500 MG TABLET PO SCH (14:08)
[2017-09-16] MEDS: CELECOXIB 200 MG CAPSULE PO SCH (14:08)
[2017-09-16] MEDS: CYANOCOBALAMIN 500 MCG TABLET PO SCH (14:09)
[2017-09-16] MEDS: PANTOPRAZOLE 40 MG TABLET PO SCH (14:09)
[2017-09-16] MEDS: CARVEDILOL 6.25 MG TABLET PO SCH ×2 (14:09→22:10)
[2017-09-16] MEDS: DOCUSATE SODIUM 100 MG CAPSULE PO SCH ×2 (14:10→22:10)
[2017-09-16] MEDS: LACTOBACILLUS RHAMNOSUS GG CAPSULE PO SCH (18:27)
[2017-09-16] MEDS: GLIMEPIRIDE 2 MG TABLET PO SCH (18:27)
[2017-09-16] MEDS ORDERED: INSULIN GLARGINE 100 UNIT/ML SUBCUT SCH (21:00)
[2017-09-16] MEDS: GABAPENTIN 300 MG CAPSULE PO SCH (22:09)
[2017-09-16] MEDS: CHOLECALCIFEROL 1,000 UNIT TABLET PO SCH (22:10)
[2017-09-16] MEDS: MONTELUKAST 10 MG TABLET PO SCH (22:10)
[2017-09-16] MEDS: ATORVASTATIN 10 MG TABLET PO SCH (22:11)
[2017-09-17] MEDS: INSULIN REGULAR 100 UNIT/ML SUBCUT SCH ×3 (00:26→11:29)
[2017-09-17] MEDS: ALBUTEROL/IPRATROPIUM 3 ML NEB RESP TX SCH ×2 (01:34→07:45)
[2017-09-17 03:45] LABS: Basophils # 0.1 10*3/uL (0.0-0.2); Basophils % 0.5 % (0.0-0.8); Eosinophils # 0.1 10*3/uL (0.0-0.87); Eosinophils % 0.6 % (0.00-10.9); Hematocrit 37.8 VOL% (35.7-47.0); Hemoglobin 11.9 GM/DL (12.0-16.0); Immature Granulocytes % 5.1 %; Immature Granulocytes Absolute 0.68 #; Lymphocytes # 1.6 10*3/uL (1.4-4.0); Lymphocytes % 12.3 % (21.3-54.2); Mean Corpuscular HGB Conc 31.5 GM/DL (32-36); Mean Corpuscular Hemoglobin 28 PG (27-34); Mean Corpuscular Volume 88.5 FL (87-102); Monocytes # 0.5 10*3/uL (0.11-0.8); Neutrophils # 10.3 10*3/uL (1.4-7.4); Neutrophils % 77.5 % (38.7-73.9); Platelet Count 252 T/CUMM (130-400); Red Blood Count 4.27 MC/CUMM (3.8-5.5); Red Cell Distribution Width 16.9 % (9.3-17.3); White Blood Count 13.3 T/CUMM (4-12)
[2017-09-17 04:19] LABS: Calcium 8.8 MG/DL (8.5-10.1); Osmolality,Calculated 285.8 MOS/KG (273-304); Potassium 4.1 MMOL/L (3.5-5.1)
[2017-09-17] MEDS: LEVOFLOXACIN INJ 750 MG in PREMIX 1 EACH IV SCH (04:59)
[2017-09-17 05:13] LABS: Eosinophils 3 % (0-10); Giant Platelets Few; Hypochromasia 1+; Lymphocytes 18 % (20-55); Ovalocytes Slight; Platelet Estimate Adequate; Segmented Neutrophils 77 % (50-85); Total Cells Counted 100
[2017-09-17] MEDS: ALBUTEROL 0.4 MG/ML 30 ML/BOTTLE PO SCH (05:53)
[2017-09-17] MEDS: AZELASTINE NASAL 137 MCG/SPRAY 30 ML BOTTLE BOTH NARES SCH (08:17)
[2017-09-17] MEDS: POTASSIUM IODIDE ORAL SOLN 1,000 MG/ML BOTTLE PO SCH (08:17)
[2017-09-17] MEDS: BACITRACIN OINT 0.9 GM PACK TOP SCH (08:19)
[2017-09-17] MEDS: CELECOXIB 200 MG CAPSULE PO SCH (08:19)
[2017-09-17] MEDS: metFORMIN 850 MG TABLET PO SCH (08:19)
[2017-09-17] MEDS: SUCRALFATE 1 GM TABLET PO SCH ×2 (08:19→11:59)
[2017-09-17] MEDS: PANTOPRAZOLE 40 MG TABLET PO SCH (08:20)
[2017-09-17] MEDS: BENZONATATE 100 MG CAPSULE PO SCH (08:20)
[2017-09-17] MEDS: GLIMEPIRIDE 4 MG TABLET PO SCH (08:20)
[2017-09-17] MEDS: CARVEDILOL 6.25 MG TABLET PO SCH (08:20)
[2017-09-17] MEDS: CYANOCOBALAMIN 500 MCG TABLET PO SCH (08:20)
[2017-09-17] MEDS: DOCUSATE SODIUM 100 MG CAPSULE PO SCH (08:20)
[2017-09-17] MEDS: PARoxetine 20 MG TABLET PO SCH (08:20)
[2017-09-17] MEDS: ASCORBIC ACID 500 MG TABLET PO SCH (08:20)
[2017-09-17] MEDS: FLUTICASONE 50 MCG NASAL SPRAY 16 GM BOTTLE BOTH NARES SCH (08:21)
[2017-09-17] MEDS: DICLOFENAC 1% GEL 100 GM TUBE TOP SCH (08:21)
[2017-09-17] MEDS: THEOPHYLLINE ER (24 HR) 400 MG CAPSULE PO SCH (11:59)
[2017-09-17 12:01] VITALS: BP 127/63
[2017-09-17] MEDS ORDERED: predniSONE 10 MG TABLET PO SCH (13:00)
== END 2017-09-17 13:30 | disposition home or self-care (01) | DRG 196 ==
LOC: N.ED 14:35 → N.EDINP 19:16 → N.3E 20:29

== ENCOUNTER 2018-05-13 15:42 | Inpatient (IN) ==
[2018-05-13 16:48] LABS: Basophils # 0.1 10*3/uL (0.0-0.2); Basophils % 0.4 % (0.0-0.8); Eosinophils # 0.5 10*3/uL (0.0-0.87); Eosinophils % 3.3 % (0.00-10.9); Hematocrit 37.5 VOL% (35.7-47.0); Hemoglobin 11.6 GM/DL (12.0-16.0); Immature Granulocytes % 0.8 %; Immature Granulocytes Absolute 0.12 #; Lymphocytes # 3.1 10*3/uL (1.4-4.0); Lymphocytes % 19.6 % (21.3-54.2); Mean Corpuscular HGB Conc 30.9 GM/DL (32-36); Mean Corpuscular Hemoglobin 27 PG (27-34); Monocytes # 1.4 10*3/uL (0.11-0.8); Monocytes % 8.9 % (1.7-12.7); Neutrophils # 10.5 10*3/uL (1.4-7.4); Platelet Count 253 T/CUMM (130-400); Red Blood Count 4.36 MC/CUMM (3.8-5.5); Red Cell Distribution Width 15.5 % (9.3-17.3); White Blood Count 15.7 T/CUMM (4-12)
[2018-05-13 17:07] LABS: PT Patient Result 10.5 SECS; Partial Thromboplastin Time 25.8 SECS (0-40)
[2018-05-13 17:09] LABS: Albumin 3.6 G/DL (3.4-5.0); Bilirubin,Total 0.4 MG/DL (0.2-1.0); Calcium 9.1 MG/DL (8.5-10.1); Osmolality,Calculated 280.3 MOS/KG (273-304); Potassium 3.2 MMOL/L (3.5-5.1); Total Protein 7.5 G/DL (6.4-8.3)
[2018-05-13 17:10] LABS: Troponin I Only < 0.015 NG/ML (0.00-0.045)
[2018-05-14 05:21] LABS: Basophils % 0.1 % (0.0-0.8); Hematocrit 33.4 VOL% (35.7-47.0); Hemoglobin 10.4 GM/DL (12.0-16.0); Immature Granulocytes % 0.9 %; Immature Granulocytes Absolute 0.08 #; Lymphocytes # 0.7 10*3/uL (1.4-4.0); Lymphocytes % 8.4 % (21.3-54.2); Mean Corpuscular HGB Conc 31.1 GM/DL (32-36); Mean Corpuscular Hemoglobin 26 PG (27-34); Mean Corpuscular Volume 84.8 FL (87-102); Mean Platelet Volume 11.7 FL (9.6-12.0); Monocytes # 0.6 10*3/uL (0.11-0.8); Monocytes % 6.8 % (1.7-12.7); Neutrophils # 7.2 10*3/uL (1.4-7.4); Neutrophils % 83.8 % (38.7-73.9); Platelet Count 218 T/CUMM (130-400); Red Blood Count 3.94 MC/CUMM (3.8-5.5); Red Cell Distribution Width 15.8 % (9.3-17.3); White Blood Count 8.6 T/CUMM (4-12)
[2018-05-14 05:54] LABS: Alanine Aminotransferase 25 U/L (13-56); Albumin 3.1 G/DL (3.4-5.0); Alkaline Phosphatase 52 U/L (45-117); Aspartate Amino Transferase 9 U/L (0-37); Bilirubin,Total < 0.39 MG/DL (0.2-1.0); Blood Urea Nitrogen 7 MG/DL (7-18); Glucose 198 MG/DL (74-106); Osmolality,Calculated 282.4 MOS/KG (273-304); Potassium 4.6 MMOL/L (3.5-5.1); Sodium 140 MMOL/L (136-145)
[2018-05-17 07:07] LABS: Basophils % 0.2 % (0.0-0.8); Hematocrit 32.8 VOL% (35.7-47.0); Hemoglobin 10.3 GM/DL (12.0-16.0); Immature Granulocytes % 1.7 %; Immature Granulocytes Absolute 0.17 #; Lymphocytes # 1.1 10*3/uL (1.4-4.0); Lymphocytes % 11.4 % (21.3-54.2); Mean Corpuscular HGB Conc 31.4 GM/DL (32-36); Mean Corpuscular Hemoglobin 27 PG (27-34); Mean Corpuscular Volume 84.3 FL (87-102); Monocytes # 0.6 10*3/uL (0.11-0.8); Monocytes % 6.1 % (1.7-12.7); Neutrophils % 80.6 % (38.7-73.9); Platelet Count 223 T/CUMM (130-400); Red Blood Count 3.89 MC/CUMM (3.8-5.5); Red Cell Distribution Width 15.6 % (9.3-17.3)
[2018-05-17 07:33] LABS: Calcium 9.4 MG/DL (8.5-10.1); Osmolality,Calculated 283.5 MOS/KG (273-304); Potassium 4.8 MMOL/L (3.5-5.1)
[2018-05-20 12:01] VITALS: BP 146/87
== END 2018-05-20 13:50 | disposition home or self-care (01) | DRG 194 ==
LOC: N.ED 15:42 → SUATTDRO 17:42 → N.EDINP 17:42 → N.2E 19:14
PROVIDERS: ADMIT Hospitalist; ATTEND Hospitalist

== ENCOUNTER 2021-04-26 19:01 | Inpatient (IN) ==
[2021-04-26 22:24] LABS: Basophils % 0.2 % (0.0-0.8); Eosinophils # 0.1 10*3/uL (0.0-0.87); Hematocrit 30.6 VOL% (35.7-47.0); Hemoglobin 9.7 GM/DL (12.0-16.0); Immature Granulocytes % 1.5 %; Immature Granulocytes Absolute 0.12 #; Lymphocytes # 1.4 10*3/uL (1.4-4.0); Lymphocytes % 16.4 % (21.3-54.2); Mean Corpuscular HGB Conc 31.7 GM/DL (32-36); Mean Platelet Volume 12.1 FL (9.6-12.0); Monocytes % 8.9 % (1.7-12.7); Platelet Count 102 T/CUMM (130-400); Red Blood Count 3.03 MC/CUMM (3.8-5.5); Red Cell Distribution Width 15.3 % (9.3-17.3); White Blood Count 8.2 T/CUMM (4-12)
[2021-04-26 22:38] LABS: Bilirubin,Urine Negative (Negative); Blood, Urine Small mg/dL (Negative); Glucose,Urine (UA) 50 mg/dL (Negative); Ketones,Urine 5 mg/dL (Negative); Mucus,Urine Occasional /LPF (Occasional); Nitrite,Urine Negative (Negative); Protein,Urine Negative; RBC,Urine <1 /HPF (0-4); Squamous Epithelial Cell,Urine Occasional /HPF (0-10); Urine Appearance CLEAR (Clear); Urine Color Yellow (Yellow); Urine Specific Gravity 1.015 (1.001-1.035); Urine Urobilinogen < 2.0 EU/DL (0.2-1.0)
[2021-04-26 22:41] LABS: Albumin 3.3 G/DL (3.4-5.0); Bilirubin,Total 1.3 MG/DL (0.20-1.00); Calcium 8.5 MG/DL (8.5-10.1); Osmolality,Calculated 274.5 MOS/KG (273-304); Potassium 4.3 MMOL/L (3.5-5.1); Total Protein 6.4 G/DL (6.4-8.2)
[2021-04-26] MEDS ORDERED: ACETAMINOPHEN 500 MG TABLET ONE (23:30)
[2021-04-26] MEDS ORDERED: ACETAMINOPHEN 500 MG TABLET PO STA (23:50)
[2021-04-27] MEDS ORDERED: VANCOMYCIN INJ 1,000 MG in SODIUM CHLORIDE 0.9% 250 ML IV STA (00:20)
[2021-04-27] MEDS ORDERED: PIPERACILLIN/TAZOBACTAM 3,375 MG in SODIUM CHLORIDE 0.9% 100 ML IV STA (00:21)
[2021-04-27 01:46] LABS: ABG Base Excess 0.6 MMOL/L (-2.5-2.5); ABG HCO3 24.9 MMOL/L (20-26); ABG Oxygen Saturation 94.7 % (95-100); ABG PCO2 35.2 MM HG (35-48); ABG PH 7.448 (7.35-7.45); ABG PO2 81.8 MM HG (80-95); ABG TCO2 22.3 MMOL/L (23-27); Allen Test Positive
[2021-04-27] MEDS ORDERED: SODIUM CHLORIDE 0.9% 2,000 ML IV STA (02:06)
[2021-04-27] MEDS ORDERED: diphenhydrAMINE CAP 25 MG CAPSULE PO PRN (02:12)
[2021-04-27] MEDS ORDERED: hydrALAZINE 20 MG/1 ML VIAL IV PRN (02:12)
[2021-04-27] MEDS ORDERED: NICOTINE 21 MG/24 HR PATCH TRANSDERM PRN (02:12)
[2021-04-27] MEDS ORDERED: MORPHINE 2 MG/1 ML SYRINGE IV PRN (02:12)
[2021-04-27] MEDS ORDERED: DEXTROSE 50% 25 GM/50 ML VIAL IV PRN ×2 (02:12)
[2021-04-27] MEDS ORDERED: GLUCAGON 1 MG VIAL IM PRN ×2 (02:12)
[2021-04-27] MEDS ORDERED: DOCUSATE SODIUM 100 MG CAPSULE PO PRN (02:12)
[2021-04-27] MEDS ORDERED: guaiFENesin/DM ER 600-30 MG TABLET PO PRN (02:12)
[2021-04-27] MEDS ORDERED: ZALEPLON 5 MG CAPSULE PO PRN (02:12)
[2021-04-27] MEDS ORDERED: VANCOMYCIN INJ 1,250 MG in SODIUM CHLORIDE 0.9% 250 ML IV SCH (02:30)
[2021-04-27] MEDS ORDERED: ENOXAPARIN 80 MG/0.8 ML SYRINGE SUBCUT ONE (03:19)
[2021-04-27] MEDS: ENOXAPARIN 40 MG/0.4 ML SYRINGE SUBCUT SCH (03:21)
[2021-04-27] MEDS: PIPERACILLIN/TAZOBACTAM 3,375 MG in SODIUM CHLORIDE 0.9% 100 ML IV SCH ×3 (04:02→18:12)
[2021-04-27] MEDS: ACETAMINOPHEN 325 MG TABLET PO PRN ×2 (04:02→10:49)
[2021-04-27] MEDS: AZITHROMYCIN INJ 500 MG in SODIUM CHLORIDE 0.9% 250 ML IV SCH (05:18)
[2021-04-27 05:39] LABS: Basophils % 0.5 % (0.0-0.8); Eosinophils # 0.1 10*3/uL (0.0-0.87); Eosinophils % 1.5 % (0.00-10.9); Hematocrit 28.2 VOL% (35.7-47.0); Immature Granulocytes % 1.4 %; Immature Granulocytes Absolute 0.09 #; Lymphocytes # 0.9 10*3/uL (1.4-4.0); Lymphocytes % 14.1 % (21.3-54.2); Mean Corpuscular HGB Conc 31.9 GM/DL (32-36); Mean Corpuscular Volume 101.8 FL (87-102); Mean Platelet Volume 12.5 FL (9.6-12.0); Monocytes % 11.4 % (1.7-12.7); Neutrophils % 71.1 % (38.7-73.9); Platelet Count 95 T/CUMM (130-400); Red Blood Count 2.77 MC/CUMM (3.8-5.5); Red Cell Distribution Width 15.4 % (9.3-17.3); White Blood Count 6.6 T/CUMM (4-12)
[2021-04-27] MEDS ORDERED: VANCOMYCIN INJ 2,000 MG in SODIUM CHLORIDE 0.9% 500 ML IV ONE (06:00)
[2021-04-27 06:13] LABS: Osmolality,Calculated 274.4 MOS/KG (273-304); Potassium 3.8 MMOL/L (3.5-5.1)
[2021-04-27 07:03] LABS: Macrocytosis Slight; Polychromasia Few
[2021-04-27 07:04] LABS: Platelet Estimate Decreased
[2021-04-27 07:05] LABS: Schistocytes Few
[2021-04-27] MEDS: ALBUTEROL/IPRATROPIUM 3 ML NEB RESP TX SCH ×3 (07:06→19:58)
[2021-04-27] MEDS: INSULIN LISPRO 100 UNIT/ML SUBCUT SCH ×4 (10:39→22:06)
[2021-04-27] MEDS: PANTOPRAZOLE 40 MG TABLET PO SCH (10:41)
[2021-04-27] MEDS: SODIUM CHLORIDE 0.9% 1,000 ML IV SCH (10:57)
[2021-04-28] MEDS: ACETAMINOPHEN 325 MG TABLET PO PRN ×2 (00:31→08:58)
[2021-04-28] MEDS: VANCOMYCIN INJ 1,250 MG in SODIUM CHLORIDE 0.9% 250 ML IV SCH ×2 (00:42→18:06)
[2021-04-28] MEDS: ONDANSETRON 4 MG/2 ML VIAL IV PRN ×2 (00:42→10:15)
[2021-04-28] MEDS: ALBUTEROL/IPRATROPIUM 3 ML NEB RESP TX SCH ×4 (00:43→19:53)
[2021-04-28] MEDS: ENOXAPARIN 40 MG/0.4 ML SYRINGE SUBCUT SCH (02:28)
[2021-04-28] MEDS: AZITHROMYCIN INJ 500 MG in SODIUM CHLORIDE 0.9% 250 ML IV SCH (02:30)
[2021-04-28] MEDS: PIPERACILLIN/TAZOBACTAM 3,375 MG in SODIUM CHLORIDE 0.9% 100 ML IV SCH ×3 (03:49→20:40)
[2021-04-28] MEDS: SODIUM CHLORIDE 0.9% 1,000 ML IV SCH ×2 (03:50→15:52)
[2021-04-28 05:23] LABS: Basophils % 0.2 % (0.0-0.8); Eosinophils % 0.8 % (0.00-10.9); Hematocrit 25.8 VOL% (35.7-47.0); Immature Granulocytes Absolute 0.05 #; Lymphocytes # 0.9 10*3/uL (1.4-4.0); Lymphocytes % 16.5 % (21.3-54.2); Mean Corpuscular Volume 103.6 FL (87-102); Mean Platelet Volume 11.9 FL (9.6-12.0); Monocytes % 8.9 % (1.7-12.7); Neutrophils % 72.6 % (38.7-73.9); Platelet Count 92 T/CUMM (130-400); Red Blood Count 2.49 MC/CUMM (3.8-5.5); Red Cell Distribution Width 15.1 % (9.3-17.3); White Blood Count 5.2 T/CUMM (4-12)
[2021-04-28 05:45] LABS: Albumin 2.5 G/DL (3.4-5.0); Bilirubin,Direct 0.55 MG/DL (0.0-0.20); Bilirubin,Indirect 0.6 MG/DL (0.0-1.0); Bilirubin,Total 1.1 MG/DL (0.20-1.00); Calcium 7.6 MG/DL (8.5-10.1); Osmolality,Calculated 283.3 MOS/KG (273-304); Potassium 3.6 MMOL/L (3.5-5.1); Total Protein 5.3 G/DL (6.4-8.2)
[2021-04-28 06:38] LABS: Anisocytosis 2+; Band Neutrophils 9 % (0-10); Lymphocytes 13 % (20-55); Macrocytosis 1+; Platelet Estimate Decreased; Segmented Neutrophils 69 % (50-85); Total Cells Counted 100
[2021-04-28] MEDS: INSULIN LISPRO 100 UNIT/ML SUBCUT SCH ×4 (08:59→20:47)
[2021-04-28] MEDS: PANTOPRAZOLE 40 MG TABLET PO SCH (08:59)
[2021-04-28 10:51] LABS: % Iron Saturation 14.2 % (18-50)
[2021-04-28] MEDS: MAGNESIUM OXIDE 400 MG TABLET PO SCH ×2 (15:49→20:44)
[2021-04-28] MEDS: METOCLOPRAMIDE 10 MG TABLET PO SCH ×2 (15:49→20:45)
[2021-04-28] MEDS: predniSONE 5 MG TABLET PO SCH (15:50)
[2021-04-28] MEDS: DAPSONE 100 MG TABLET PO SCH (15:50)
[2021-04-28] MEDS ORDERED: cycloSPORINE 100 MG CAPSULE PO SCH (16:00)
[2021-04-28] MEDS: PREGABALIN 100 MG CAPSULE PO SCH (20:43)
[2021-04-28] MEDS: MYCOPHENOLATE MOFETIL 250 MG CAPSULE PO SCH (20:45)
[2021-04-28] MEDS: ATORVASTATIN 10 MG TABLET PO SCH (20:45)
[2021-04-28] MEDS: CHOLECALCIFEROL 1,000 UNIT TABLET PO SCH (20:45)
[2021-04-28] MEDS: INSULIN GLARGINE 100 UNIT/ML SUBCUT SCH (20:47)
[2021-04-28] MEDS ORDERED: [UNRECOGNIZED DRUG - OTHER] PO SCH (21:00)
[2021-04-28] MEDS ORDERED: ESOMEPRAZOLE MAGNESIUM 20 MG PO SCH (21:00)
[2021-04-28] MEDS: ITRACONAZOLE 100 MG PO SCH (21:01)
[2021-04-28] MEDS: CYCLOSPORINE 25 MG PO SCH (21:03)
[2021-04-29] MEDS: ONDANSETRON 4 MG/2 ML VIAL IV PRN ×2 (00:12→10:50)
[2021-04-29] MEDS: ALBUTEROL/IPRATROPIUM 3 ML NEB RESP TX SCH ×4 (01:31→18:59)
[2021-04-29] MEDS: PIPERACILLIN/TAZOBACTAM 3,375 MG in SODIUM CHLORIDE 0.9% 100 ML IV SCH ×3 (02:48→18:07)
[2021-04-29] MEDS: ENOXAPARIN 40 MG/0.4 ML SYRINGE SUBCUT SCH (02:48)
[2021-04-29] MEDS: AZITHROMYCIN INJ 500 MG in SODIUM CHLORIDE 0.9% 250 ML IV SCH (04:03)
[2021-04-29] MEDS: SODIUM CHLORIDE 0.9% 1,000 ML IV SCH ×2 (04:05→16:48)
[2021-04-29 06:35] LABS: Basophils % 0.2 % (0.0-0.8); Eosinophils % 0.3 % (0.00-10.9); Hematocrit 27.5 VOL% (35.7-47.0); Hemoglobin 8.1 GM/DL (12.0-16.0); Immature Granulocytes Absolute 0.06 #; Lymphocytes # 0.9 10*3/uL (1.4-4.0); Lymphocytes % 14.3 % (21.3-54.2); Mean Corpuscular HGB Conc 29.5 GM/DL (32-36); Mean Corpuscular Volume 105.8 FL (87-102); Mean Platelet Volume 12.3 FL (9.6-12.0); Monocytes % 6.2 % (1.7-12.7); Platelet Count 110 T/CUMM (130-400); Red Cell Distribution Width 15.6 % (9.3-17.3); White Blood Count 5.9 T/CUMM (4-12)
[2021-04-29 06:59] LABS: Band Neutrophils 1 % (0-10); Hypochromasia 1+; Lymphocytes 7 % (20-55); Microcytosis 1+; Platelet Estimate Decreased; Segmented Neutrophils 84 % (50-85); Total Cells Counted 100
[2021-04-29 07:06] LABS: Calcium 7.6 MG/DL (8.5-10.1); Osmolality,Calculated 281.5 MOS/KG (273-304); Potassium 4.1 MMOL/L (3.5-5.1)
[2021-04-29] MEDS: INSULIN LISPRO 100 UNIT/ML SUBCUT SCH ×4 (09:01→21:34)
[2021-04-29] MEDS: INSULIN GLARGINE 100 UNIT/ML SUBCUT SCH ×2 (09:01→21:34)
[2021-04-29] MEDS: DAPSONE 100 MG TABLET PO SCH (09:02)
[2021-04-29] MEDS: MYCOPHENOLATE MOFETIL 250 MG CAPSULE PO SCH ×2 (09:03→21:30)
[2021-04-29] MEDS: PREGABALIN 100 MG CAPSULE PO SCH ×2 (09:05→21:30)
[2021-04-29] MEDS: PANTOPRAZOLE 40 MG TABLET PO SCH (09:05)
[2021-04-29] MEDS: predniSONE 5 MG TABLET PO SCH (09:05)
[2021-04-29] MEDS: FOLIC ACID 1 MG TABLET PO SCH (09:05)
[2021-04-29] MEDS: VITAMIN E 400 UNIT CAPSULE PO SCH (09:05)
[2021-04-29] MEDS: METOCLOPRAMIDE 10 MG TABLET PO SCH ×3 (09:05→21:29)
[2021-04-29] MEDS: MAGNESIUM OXIDE 400 MG TABLET PO SCH ×3 (09:05→21:28)
[2021-04-29] MEDS: ASPIRIN EC 81 MG TABLET PO SCH (09:05)
[2021-04-29] MEDS: CYCLOSPORINE 100 MG PO SCH (09:09)
[2021-04-29] MEDS: ITRACONAZOLE 100 MG PO SCH ×2 (09:13→21:32)
[2021-04-29] MEDS ORDERED: FUROSEMIDE 40 MG TABLET PO PRN (09:14)
[2021-04-29] MEDS: PARoxetine 20 MG TABLET PO SCH (09:15)
[2021-04-29] MEDS: FERROUS SULFATE 325 MG TABLET PO SCH ×2 (10:49→16:46)
[2021-04-29] MEDS: ONDANSETRON ODT 4 MG TABLET PO SCH ×2 (15:09→21:31)
[2021-04-29] MEDS: VANCOMYCIN INJ 1,250 MG in SODIUM CHLORIDE 0.9% 250 ML IV SCH (15:11)
[2021-04-29] MEDS ORDERED: CALCIUM (CARBONATE) 500 MG TABLET PO SCH (21:00)
[2021-04-29] MEDS: CHOLECALCIFEROL 1,000 UNIT TABLET PO SCH (21:29)
[2021-04-29] MEDS: ATORVASTATIN 10 MG TABLET PO SCH (21:30)
[2021-04-29] MEDS: CYCLOSPORINE 25 MG PO SCH (21:33)
[2021-04-30] MEDS: ALBUTEROL/IPRATROPIUM 3 ML NEB RESP TX SCH ×3 (00:58→14:05)
[2021-04-30] MEDS: PIPERACILLIN/TAZOBACTAM 3,375 MG in SODIUM CHLORIDE 0.9% 100 ML IV SCH ×3 (03:07→17:28)
[2021-04-30] MEDS: ONDANSETRON 4 MG/2 ML VIAL IV PRN (04:59)
[2021-04-30] MEDS: SODIUM CHLORIDE 0.9% 1,000 ML IV SCH (05:09)
[2021-04-30 05:29] LABS: Basophils % 0.3 % (0.0-0.8); Eosinophils # 0.1 10*3/uL (0.0-0.87); Eosinophils % 0.8 % (0.00-10.9); Hematocrit 31.9 VOL% (35.7-47.0); Hemoglobin 9.4 GM/DL (12.0-16.0); Immature Granulocytes Absolute 0.13 #; Lymphocytes # 0.7 10*3/uL (1.4-4.0); Lymphocytes % 11.2 % (21.3-54.2); Mean Corpuscular HGB Conc 29.5 GM/DL (32-36); Mean Corpuscular Volume 105.6 FL (87-102); Mean Platelet Volume 12.3 FL (9.6-12.0); Monocytes % 6.1 % (1.7-12.7); Neutrophils % 79.6 % (38.7-73.9); Platelet Count 116 T/CUMM (130-400); Red Blood Count 3.02 MC/CUMM (3.8-5.5); Red Cell Distribution Width 15.6 % (9.3-17.3); White Blood Count 6.6 T/CUMM (4-12)
[2021-04-30 06:00] LABS: Osmolality,Calculated 275.5 MOS/KG (273-304); Potassium 4.3 MMOL/L (3.5-5.1)
[2021-04-30 06:16] LABS: Band Neutrophils 3 % (0-10); Eosinophils 2 % (0-10); Lymphocytes 8 % (20-55); Microcytosis 1+; Polychromasia Slight; Segmented Neutrophils 78 % (50-85); Total Cells Counted 100
[2021-04-30 06:17] LABS: Hypochromasia 1+; Platelet Estimate Adequate
[2021-04-30] MEDS: VANCOMYCIN INJ 1,250 MG in SODIUM CHLORIDE 0.9% 250 ML IV SCH (07:28)
[2021-04-30] MEDS ORDERED: CALCIUM (CARBONATE) 500 MG TABLET PO SCH (08:00)
[2021-04-30] MEDS: INSULIN LISPRO 100 UNIT/ML SUBCUT SCH ×3 (08:59→17:21)
[2021-04-30] MEDS ORDERED: AZITHROMYCIN 250 MG TABLET PO SCH (09:00)
[2021-04-30] MEDS ORDERED: traMADol 50 MG TABLET PO PRN (09:43)
[2021-04-30] MEDS: ENOXAPARIN 40 MG/0.4 ML SYRINGE SUBCUT SCH (10:06)
[2021-04-30] MEDS: INSULIN GLARGINE 100 UNIT/ML SUBCUT SCH (10:06)
[2021-04-30] MEDS: ASPIRIN EC 81 MG TABLET PO SCH (10:07)
[2021-04-30] MEDS: PREGABALIN 100 MG CAPSULE PO SCH (10:08)
[2021-04-30] MEDS: ONDANSETRON ODT 4 MG TABLET PO SCH ×2 (10:09→17:21)
[2021-04-30] MEDS: MYCOPHENOLATE MOFETIL 250 MG CAPSULE PO SCH (10:09)
[2021-04-30] MEDS: PARoxetine 20 MG TABLET PO SCH (10:09)
[2021-04-30] MEDS: VITAMIN E 400 UNIT CAPSULE PO SCH (10:09)
[2021-04-30] MEDS: MAGNESIUM OXIDE 400 MG TABLET PO SCH ×2 (10:10→17:20)
[2021-04-30] MEDS: predniSONE 5 MG TABLET PO SCH (10:11)
[2021-04-30] MEDS: DAPSONE 100 MG TABLET PO SCH (10:11)
[2021-04-30] MEDS: FOLIC ACID 1 MG TABLET PO SCH (10:11)
[2021-04-30] MEDS: PANTOPRAZOLE 40 MG TABLET PO SCH (10:11)
[2021-04-30] MEDS: METOCLOPRAMIDE 10 MG TABLET PO SCH ×2 (10:11→17:20)
[2021-04-30] MEDS: FERROUS SULFATE 325 MG TABLET PO SCH ×2 (10:11→17:20)
[2021-04-30] MEDS: carvediloL 3.125 MG TABLET PO SCH ×2 (10:11→17:20)
[2021-04-30] MEDS: CYCLOSPORINE 100 MG PO SCH (10:23)
[2021-04-30] MEDS: ITRACONAZOLE 100 MG PO SCH (10:31)
[2021-04-30] MEDS ORDERED: FUROSEMIDE 40 MG/4 ML VIAL IV SCH (11:00)
[2021-04-30] MEDS ORDERED: MONTELUKAST 10 MG TABLET PO SCH (11:00)
[2021-04-30] MEDS: ACETAMINOPHEN 325 MG TABLET PO PRN (12:02)
[2021-04-30] MEDS ORDERED: ALBUTEROL 0.4 MG/ML 30 ML/BOTTLE PO SCH (15:00)
[2021-04-30 16:11] VITALS: BP 112/61
== END 2021-04-30 19:40 | disposition hospice, home (50) | DRG 205 ==
LOC: N.ED 19:01 → SUATTDRO 04-27 02:12 → N.EDINP 04-27 02:12 → N.TELEN 04-27 04:01 → N.5E 04-27 21:20
PROVIDERS: ADMIT Phlebology; ATTEND Internal Medicine